=== PATIENT | female | born 1980 | race Caucasian/White ===

== ENCOUNTER 2017-12-17 00:21 | Emergency (ER) | payer OTHER, SELFPAY ==
--- NOTE | 2017-12-17 00:29 | ED_ITS ---
HPI - General Adult General Chief complaint: Recheck/Abnormal Lab/Rx Stated complaint: MED REFILL Time Seen by Provider: 12/17/17 00:28 Source: patient Mode of arrival: ambulatory Limitations: no limitations History of Present Illness HPI narrative: Patient is here for a refill of her Effexor 150 mg XR tablets. Related Data Home Medications Medication Instructions Recorded Confirmed venlafaxine 150 mg PO QDAY #0 05/26/16 Previous Rx's Medication Instructions Recorded azithromycin [Zithromax Z-Choco] 0 tab PO QDAY #6 tab 05/27/16 venlafaxine [Effexor XR] 150 mg PO DAILY #30 cap 12/17/17 Allergies Allergy/AdvReac Type Severity Reaction Status Date / Time amoxicillin [AMOXICILLIN] Allergy Unknown Unverified 05/24/17 12:43 Sulfa (Sulfonamide Allergy Unknown Unverified 05/24/17 12:43 Antibiotics) [SULFA (SULFONAMIDE ANTIBIOTICS)] Review of Systems Review of Systems Patient has no complaints except that she needs a refill of her medication. FOR[facility]LY [facility] Medical History Healthy adult (Acute) Surgical History No pertinent past surgical history (Acute) Exam Initial Vital Signs Initial Vital Signs: Vital Signs Temperature 97.9 F 12/17/17 00:33 Pulse Rate 86 12/17/17 00:33 Respiratory Rate 16 12/17/17 00:33 Blood Pressure 144/93 H 12/17/17 00:33 Pulse Oximetry 100 12/17/17 00:33 HENMT Head: normal to inspection, normocephalic and atraumatic Resp Effort & Inspection: normal respiratory effort Skin Lesions: no lesions Rashes: no rashes Neuro General: alert, awake and oriented x3 Psych Appearance: grossly normal and well kempt Course Vital Signs - 8 hr 12/17/17 00:33 Temperature 97.9 F Pulse Rate 86 Respiratory Rate 16 Blood Pressure 144/93 H Pulse Oximetry 100 Medical Decision Making MDM Narrative Medical decision making narrative: Patient did have her prescription bottle with her. Refill of 30x 150 mg Effexor XR tablets was written for her. Discharge Plan Departure Patient Disposition: Home Clinical Impression: Medication refill Activity Restrictions/Additional Instructions: take all of your medications as directed. Contact your primary care doctor for a follow-up. Prescriptions: New venlafaxine [Effexor XR] 150 mg capsule,extended release 24hr 150 mg PO DAILY Qty: 30 RF: 0 No Action venlafaxine 150 MG capsule,extended release 24hr 150 mg PO QDAY Qty: 0 RF: 0 azithromycin [Zithromax Z-Choco] 250 MG tablet PO QDAY Qty: 6 RF: 0
[2017-12-17 00:33] VITALS: BP 144/93; PULSE 86; RESP 16; TEMP 36.6; O2SAT 100; BMI 29.2
== END 2017-12-17 00:36 | disposition home or self-care (01) ==
PROVIDERS: Emergency Provider Emergency Medicine
DX: Z76.0 Encounter for issue of repeat prescription (principal)
CPT/HCPCS: 99281; 99282

== ENCOUNTER 2019-09-16 19:46 | Emergency (ER) | payer OTHER, SELFPAY ==
[2019-09-16 20:20] VITALS: BP 129/79; PULSE 85; RESP 15; TEMP 37.1; O2SAT 98; BMI 32.8
== END 2019-09-16 21:56 | disposition left against medical advice (07) ==
PROVIDERS: Emergency Provider Emergency Medicine
DX: R51 Headache (principal)
CPT/HCPCS: 99281

== ENCOUNTER 2020-06-15 09:43 | Emergency (ER) | payer OTHER, SELFPAY ==
[2020-06-15 09:45] VITALS: BP 186/98; PULSE 100; RESP 14; TEMP 37.2; O2SAT 99
--- NOTE | 2020-06-15 09:46 | DI.RAD.S_ITS ---
PROCEDURE: XR CHEST 1V INDICATIONS: chest pain TECHNIQUE: One view of the chest was acquired. COMPARISON: None. FINDINGS: Surgical changes and devices: None. Lungs and pleura: Lungs are clear. No pleural effusions or pneumothorax. Mediastinum: Mediastinal contours appear normal. Heart size is normal. Bones and chest wall: No suspicious bony lesions. Overlying soft tissues appear unremarkable. IMPRESSION: Normal for age, source of current chest pain symptoms is not seen. Dictated by: Singh Souza M.D. on 06/15/2020 at 11:10 Approved by: Singh Souza M.D. on 06/15/2020 at 11:10
[2020-06-15 10:16] LABS: Add Manual Diff / Slide Review NO; Basophils Absolute Auto 0 /uL (0-100); Basophils Percent Auto 0.8 % (0-2); Eosinophils Absolute Auto 100 /uL (0-450); Eosinophils Percent Auto 1.2 % (2-4); Hematocrit 30.8 % (36-46); Hemoglobin 9.6 g/dL (12.0-16.0); Lymphocytes Absolute Auto 1300 /uL (1100-4500); Lymphocytes Percent Auto 26.2 % (25-40); Mean Corpuscular HGB Conc 31.1 % (30-36); Mean Corpuscular Hemoglobin 23.1 PG (26-34); Mean Corpuscular Volume 74.2 fL (80-100); Monocytes Absolute Auto 500 /uL (0-900); Monocytes Percent Auto 9.8 % (3-14); Neutrophils Absolute Auto 3000 /uL (1500-7000); Platelet Count 333 X10^3/uL (150-400); Red Blood Cell Count 4.16 X10^6/uL (4.0-5.2); Red Cell Distribution Width 17.1 % (11.6-14.8); White Blood Cell Count 4.9 X10^3/uL (4.5-11.0)
[2020-06-15 10:22] VITALS: PULSE 91; RESP 18; O2SAT 100
--- NOTE | 2020-06-15 10:23 | PC.NURSE ---
pt states she had chest pain yesterday as well. it started again at 0745. pt states is a chest pressure and she also has a slight headache.
--- NOTE | 2020-06-15 10:24 | ED.CHESTPAIN ---
HPI - Chest Pain General Chief Complaint: Chest Pain Stated Complaint: High BP/Chest pressure Time Seen by Provider: 06/15/20 10:07 Source: patient Mode of arrival: Ambulatory Limitations: no limitations History of Present Illness HPI narrative: Patient is a 40-year-old female here for evaluation of high blood pressure and chest pain. She states that her symptoms started yesterday continue throughout the day. Described it as a pressure in her chest. Was not made better worse with palpation or movement. She took an Ativan last night for some anxiety and went to sleep with the discomfort. Woke up this morning feeling somewhat better and then the discomfort returned. She states that she was told that she had a ?silent heart attack ?in the past. She is not on blood pressure medications. Related Data Home Medications Medication Instructions Recorded Confirmed venlafaxine 150 mg PO QDAY #0 05/26/16 Previous Rx's Medication Instructions Recorded venlafaxine [Effexor XR] 150 mg PO DAILY #30 cap 12/17/17 Allergies Allergy/AdvReac Type Severity Reaction Status Date / Time amoxicillin [AMOXICILLIN] Allergy Unknown Verified 06/15/20 10:42 Sulfa (Sulfonamide Allergy Unknown Verified 06/15/20 10:42 Antibiotics) [SULFA (SULFONAMIDE ANTIBIOTICS)] Review of Systems Constitutional Constitutional: Denies fatigue, Denies fever(s) and Denies headache(s) Eyes Eyes: Denies blurry vision and Denies change in vision ENT Ears, Nose, Mouth, and Throat: Denies headache(s) and Denies sore throat Cardiovascular Cardiovascular: Reports chest pain, Denies rapid heart rate, Denies irregular heart rhythm and Denies dyspnea Respiratory Respiratory: Denies cough and Denies dyspnea Gastrointestinal Gastrointestinal: Denies abdominal pain, Denies nausea and Denies vomiting Genitourinary Genitourinary: Denies dysuria Genitourinary: Denies dysuria Musculoskeletal Musculoskeletal: Denies myalgias Integumentary/Breasts Skin/Breast: Denies lesions and Denies rash Neurologic Neurologic: Denies behavioral changes, Denies confusion and Denies headache(s) Psychiatric Psychiatric: Denies behavioral changes and Denies confusion Endocrine Endocrine: Denies fatigue Hematologic/Lymphatic On Anticoagulants: No Allergic/Immunologic Allergic/Immunologic: Denies urticaria Patient History Medical History Healthy adult Surgical History (Updated 12/17/17 @ 00:37 by Luis Eduardo Yoder DO) No pertinent past surgical history Social History Smoking Status: Current every day smoker Smoking Status: Current every day smoker alcohol intake frequency: 0-2 drinks per day Substance Use Type: does not use Exam Initial Vital Signs Initial Vital Signs: Vital Signs Temperature 98.9 F 06/15/20 09:45 Pulse Rate 100 H 06/15/20 09:45 Respiratory Rate 14 06/15/20 09:45 Blood Pressure 186/98 H 06/15/20 09:45 Pulse Oximetry 99 06/15/20 09:45 Const General: cooperative, comfortable and well developed Limitations: mental status not altered HENMT Head: normal to inspection and normocephalic Eyes General: appearance normal, both eyes and all related structures Chest Chest: No tenderness Resp Effort & Inspection: normal respiratory effort Auscultation: clear to auscultation bilaterally Cardio Rate: regular rate Rhythm: regular rhythm Pulses: radial pulses present GI Inspection: non-distended Palpation: soft Skin Lesions: no lesions Rashes: no rashes Neuro General: patient alert, patient awake and patient oriented x3 Cognition: normal cognition Speech: speech normal Extrem General: normal to inspection and capillary refill normal Psych Appearance: grossly normal and well kempt Scores GCS [place] coma scale eye opening: Spontaneous [place] coma scale verbal response: Orientated [place] coma scale motor response: Obey commands [place] coma scale total score: 15 HEART Score Heart Score history: Slightly Suspicious Heart Score EKG: Normal Heart Score Age: < 45 years old Heart Score risk factors: No known risk factors Heart Score troponin: < or = to normal limit Heart Score Total: 0 Course Orders Ordered: ED Orders 06/15/20 09:46 XR chest 1V Stat EKG-12 Lead Stat 06/15/20 10:05 Complete Blood Count AUTO DIFF Stat Comprehensive Metabolic Panel Stat Lipase Stat Partial Thromboplastin Time Stat Prothrombin Time INR Stat Troponin & CK Cardiac Panel Stat 06/15/20 10:08 TSH w/ Reflex to FT4 Stat Vital Signs Vital signs: Vital Signs - 8 hr 06/15/20 09:45 Temperature 98.9 F Pulse Rate 100 H Respiratory Rate 14 Blood Pressure 186/98 H Pulse Oximetry 99 MDM - Chest Pain Lab Data Attestation: I reviewed the patient's lab results. Result diagrams: 06/15/20 10:05 06/15/20 10:05 Labs: Lab Results 06/15/20 06/15/20 06/15/20 Range/Units 10:05 10:05 10:05 WBC 4.9 (4.5-11.0) X10^3/uL RBC 4.16 (4.0-5.2) X10^6/uL Hgb 9.6 L (12.0-16.0) g/dL Hct 30.8 L (36-46) % MCV 74.2 L (80-100) fL MCH 23.1 L (26-34) PG MCHC 31.1 (30-36) % RDW 17.1 H (11.6-14.8) % Plt Count 333 (150-400) X10^3/uL Neut % (Auto) 62.0 (50-75) % Lymph % (Auto) 26.2 (25-40) % [place] % (Auto) 9.8 (3-14) % Eos % (Auto) 1.2 L (2-4) % Baso % (Auto) 0.8 (0-2) % Neut # (Auto) 3000 (6825-4330) /uL Lymph # (Auto) 1300 (5886-7515) /uL [place] # (Auto) 500 (0-900) /uL Eos # (Auto) 100 (0-450) /uL Baso # (Auto) 0 (0-100) /uL PT 11.1 (10.1-12.7) SECONDS INR 1.0 (0.9-1.3) APTT 30 (26.4-36.2) SECONDS Sodium 138 (137-145) mmol/L Potassium 3.6 (3.4-5.1) mmol/L Chloride 105 (98-107) mmol/L Carbon Dioxide 27 (22-32) mmol/L BUN 7 (7-17) mg/dL Creatinine 0.53 (0.52-1.04) mg/dL Estimated GFR > 60.0 (>60) mL/min BUN/Creatinine Ratio 13.2 (6-22) Glucose 99 (70-100) mg/dL Calcium 9.1 (8.4-10.2) mg/dL Total Bilirubin 0.3 (0.2-1.3) mg/dL AST 28 (14-36) IU/L ALT 14 (<35) IU/L Alkaline Phosphatase 79 (38-126) U/L Total Creatine Kinase 83 (30-135) U/L CK-MB (CK-2) TNP CK-MB (CK-2) Rel Index TNP Troponin I < 0.012 (0.01-0.034) ng/mL Total Protein 7.5 (6.3-8.2) g/dL Albumin 4.2 (3.5-5.0) g/dL Globulin 3.3 (1.7-4.1) g/dL Albumin/Globulin Ratio 1.3 (1.0-2.8) Lipase 80 (23-300) U/L TSH (0.47-4.68) uIU/mL 06/15/ Range/Units 10:08 WBC (4.5-11.0) X10^3/uL RBC (4.0-5.2) X10^6/uL Hgb (12.0-16.0) g/dL Hct (36-46) % MCV (80-100) fL MCH (26-34) PG MCHC (30-36) % RDW (11.6-14.8) % Plt Count (150-400) X10^3/uL Neut % (Auto) (50-75) % Lymph % (Auto) (25-40) % [place] % (Auto) (3-14) % Eos % (Auto) (2-4) % Baso % (Auto) (0-2) % Neut # (Auto) (1172-1966) /uL Lymph # (Auto) (4796-2536) /uL [place] # (Auto) (0-900) /uL Eos # (Auto) (0-450) /uL Baso # (Auto) (0-100) /uL PT (10.1-12.7) SECONDS INR (0.9-1.3) APTT (26.4-36.2) SECONDS Sodium (137-145) mmol/L Potassium (3.4-5.1) mmol/L Chloride (98-107) mmol/L Carbon Dioxide (22-32) mmol/L BUN (7-17) mg/dL Creatinine (0.52-1.04) mg/dL Estimated GFR (>60) mL/min BUN/Creatinine Ratio (6-22) Glucose (70-100) mg/dL Calcium (8.4-10.2) mg/dL Total Bilirubin (0.2-1.3) mg/dL AST (14-36) IU/L ALT (<35) IU/L Alkaline Phosphatase (38-126) U/L Total Creatine Kinase (30-135) U/L CK-MB (CK-2) CK-MB (CK-2) Rel Index Troponin I (0.01-0.034) ng/mL Total Protein (6.3-8.2) g/dL Albumin (3.5-5.0) g/dL Globulin (1.7-4.1) g/dL Albumin/Globulin Ratio (1.0-2.8) Lipase (23-300) U/L TSH 4.17 (0.47-4.68) uIU/mL Imaging Data Chest x-ray: Radiologist's Impression: [address] [id number] ReportSigned Patient: Monserrat Duffy PMR#: [id number]: 1980Acct:[id number]/Sex: 40 / FDate of Service: 06/15/20Loc: EDAccession Number: [id number] Procedure: XR chest 1V Ordering Provider: Luis Eduardo Yoder D.O. PROCEDURE: XR CHEST 1V INDICATIONS: chest pain TECHNIQUE: One view of the chest was acquired. COMPARISON: None. FINDINGS: Surgical changes and devices: None. Lungs and pleura: Lungs are clear. No pleural effusions or pneumothorax. Mediastinum: Mediastinal contours appear normal. Heart size is normal. Bones and chest wall: No suspicious bony lesions. Overlying soft tissues appear unremarkable. IMPRESSION: Normal for age, source of current chest pain symptoms is not seen. Dictated by: Singh Souza M.D. on 06/15/2020 at 11:10 Approved by: Singh Souza M.D. on 06/15/2020 at 11:10 ECG Data Attestation: I personally reviewed and interpreted this ECG as follows: Prior ECG tracings: not available for review Interpretation: Sinus tachycardia Ventricular rate of 101 Normal axis Normal QRS Normal QTC No ST T wave changes MDM Narrative Medical decision making narrative: Patient has a low risk heart score. EKG and chest x-ray are all unremarkable. Troponin is negative. Have low suspicion for ACS. I do have a higher suspicion that this is anxiety related. She is afebrile. No indication for antibiotics. Will discharge home and have her contact her primary provider for follow-up. She was given return precautions. She expressed understanding and agreement. Discharge Plan Departure Patient Disposition: Home Clinical Impression: Chest pain Instructions: DI for Atypical Chest Pain Activity Restrictions/Additional Instructions: Recommend that you take all of your medications as directed. Contact your primary provider for a follow-up. Return to the emergency department for any new or worsening symptoms Prescriptions: No Action venlafaxine 150 MG capsule,extended release 24hr 150 mg PO QDAY Qty: 0 RF: 0 venlafaxine [Effexor XR] 150 mg capsule,extended release 24hr 150 mg PO DAILY Qty: 30 RF: 0 Referrals: Yolanda Reese MD [Primary Care Provider] -
[2020-06-15 10:30] VITALS: BP 131/75; PULSE 88; RESP 20; O2SAT 98
[2020-06-15 10:35] LABS: Alanine Aminotransferase 14 IU/L (<35); Albumin 4.2 g/dL (3.5-5.0); Albumin Globulin Ratio 1.3 (1.0-2.8); Alkaline Phosphatase 79 U/L (38-126); Aspartate Aminotransferase 28 IU/L (14-36); BUN Creatinine Ratio 13.2 (6-22); Bilirubin Total 0.3 mg/dL (0.2-1.3); Blood Urea Nitrogen 7 mg/dL (7-17); Calcium 9.1 mg/dL (8.4-10.2); Carbon Dioxide 27 mmol/L (22-32); Chloride 105 mmol/L (98-107); Creatine Kinase 83 U/L (30-135); Estimated Glomerular Filt Rate > 60.0 mL/min (>60); Globulin 3.3 g/dL (1.7-4.1); Glucose 99 mg/dL (70-100); HEMOLYSIS < 15 (0-50); Lipase 80 U/L (23-300); Potassium 3.6 mmol/L (3.4-5.1); Sodium 138 mmol/L (137-145); Total Protein 7.5 g/dL (6.3-8.2)
[2020-06-15 10:40] LABS: Prothrombin Time 11.1 SECONDS (10.1-12.7)
[2020-06-15 10:43] LABS: PTT Partial Thromboplastin Tim 30 SECONDS (26.4-36.2)
[2020-06-15 10:46] LABS: Troponin I < 0.012 ng/mL (0.01-0.034)
[2020-06-15 11:00] VITALS: BP 126/75; PULSE 79; RESP 19; O2SAT 100
[2020-06-15 11:30] VITALS: BP 138/77; PULSE 83; RESP 21; O2SAT 100
[2020-06-15 11:45] LABS: TSH w/ Reflex to FT4 4.17 uIU/mL (0.47-4.68)
[2020-06-15 12:00] VITALS: BP 138/77; PULSE 85; RESP 28; O2SAT 91
== END 2020-06-15 12:15 | disposition home or self-care (01) ==
PROVIDERS: Emergency Provider Emergency Medicine; PCP Student in an Organized Health Care Education/Training Program
DX: R07.9 Chest pain, unspecified (principal); R00.0 Tachycardia, unspecified
CPT/HCPCS: 36415; 71045; 80053; 82550; 83690; 84443; 84484; 85025; 85610; 85730; 93005; 99284

== ENCOUNTER 2021-03-14 19:58 | Emergency (ER) | payer OTHER, SELFPAY ==
[2021-03-14 20:10] VITALS: BP 162/99; PULSE 85; RESP 16; TEMP 36.3; O2SAT 98; BMI 35.5
--- NOTE | 2021-03-14 20:38 | DI.US.S_ITS ---
PROCEDURE: US ABDOMEN LIMITED INDICATIONS: RUQ abd pain TECHNIQUE: Real-time scanning was performed of the abdominal and retroperitoneal organs, with image documentation. COMPARISON: None. FINDINGS: Liver: Liver is enlarged measuring 18.8 cm. No focal masses. Gallbladder: No stones. Wall thickness is within normal limits measuring 2.0 cm per Biliary ducts: Intrahepatic bile ducts are non-dilated. Extrahepatic bile duct caliber measures 3.3 mm. Normal is 6-7 mm or less in diameter, or 10 mm or less post-cholecystectomy. Pancreas: Visualized portions of the pancreas are sonographically normal. IMPRESSION: 1. Mild hepatomegaly without focal mass. Dictated by: Jennifer Bolden M.D. on 03/14/2021 at 21:22 Approved by: Jennifer Bolden M.D. on 03/14/2021 at 21:23
[2021-03-14] MEDS: KETOROLAC 30 MG/ML VIAL 15 MG IV (20:43)
[2021-03-14 20:46] LABS: Add Manual Diff / Slide Review NO; Basophils Absolute Auto 0 /uL (0-100); Basophils Percent Auto 0.5 % (0-2); Eosinophils Absolute Auto 200 /uL (0-450); Eosinophils Percent Auto 2.2 % (2-4); Lymphocytes Absolute Auto 1900 /uL (1100-4500); Lymphocytes Percent Auto 22.8 % (25-40); Mean Corpuscular HGB Conc 32.4 % (30-36); Mean Corpuscular Hemoglobin 26.3 PG (26-34); Mean Corpuscular Volume 81.2 fL (80-100); Monocytes Absolute Auto 600 /uL (0-900); Monocytes Percent Auto 7.9 % (3-14); Neutrophils Absolute Auto 5400 /uL (1500-7000); Neutrophils Percent Auto 66.6 % (50-75); Platelet Count 237 X10^3/uL (150-400); Red Blood Cell Count 4.19 X10^6/uL (4.0-5.2); Red Cell Distribution Width 19.5 % (11.6-14.8); White Blood Cell Count 8.2 X10^3/uL (4.5-11.0)
[2021-03-14 20:58] LABS: Alanine Aminotransferase 11 IU/L (<35); Albumin 4.4 g/dL (3.5-5.0); Albumin Globulin Ratio 1.4 (1.0-2.8); Alkaline Phosphatase 80 U/L (38-126); Aspartate Aminotransferase 20 IU/L (14-36); Bilirubin Total 0.3 mg/dL (0.2-1.3); Blood Urea Nitrogen 11 mg/dL (7-17); Carbon Dioxide 27 mmol/L (22-32); Chloride 106 mmol/L (98-107); Estimated Glomerular Filt Rate > 60.0 mL/min (>60); Globulin 3.2 g/dL (1.7-4.1); Glucose 108 mg/dL (70-100); HEMOLYSIS < 15 (0-50); Lipase 109 U/L (23-300); Potassium 3.9 mmol/L (3.4-5.1); Sodium 139 mmol/L (137-145); Total Protein 7.6 g/dL (6.3-8.2)
--- NOTE | 2021-03-14 22:57 | PC.NURSE ---
pt states she has mid upper abd pain that radiates into the back that is constant in nature and may increase with eating, at present pt states her pain is mild after the tramadol she took earlier
--- NOTE | 2021-03-14 23:21 | ED.ABDPAIN ---
HPI - Abdominal Pain General Chief Complaint: Abdominal Pain Stated Complaint: abd pain, back is hurting Time Seen by Provider: 03/14/21 23:18 Source: patient Mode of arrival: Ambulatory History of Present Illness HPI narrative: Patient is a 40-year-old female with history of depression hypothyroid presenting today with 2 days of abdominal pain. She says it feels like a belt around her epigastric area is. She initially thought she had food poisoning but she never got nauseous or had vomiting or diarrhea. She has no fever or chills. She says it is constantly there but does intensify. She has no chest pain no painful or frequent urination. She denies any prior surgery. She got Toradol earlier and she says it did help much. She says food does not make it worse she is able to is injuring her Related Data Home Medications Medication Instructions Recorded Confirmed escitalopram oxalate 20 mg tablet 20 mg PO DAILY 01/20/21 01/20/21 (Lexapro) levothyroxine 88 mcg tablet 88 mcg PO DAILY 01/20/21 01/20/21 lisdexamfetamine 30 mg chewable 30 mg PO DAILY 01/20/21 01/20/21 tablet (Vyvanse) Allergies Allergy/AdvReac Type Severity Reaction Status Date / Time amoxicillin [AMOXICILLIN] Allergy Unknown Verified 06/15/20 10:42 Sulfa (Sulfonamide Allergy Unknown Verified 06/15/20 10:42 Antibiotics) [SULFA (SULFONAMIDE ANTIBIOTICS)] Review of Systems Review of Systems Narrative: GENERAL: Denies chills, fatigue, malaise, fever, sweats, travel HEENT: Denies sinus pain, ear pain, sore throat, difficulty swallowing, neck pain RESPIRATORY: Denies dyspnea, cough, wheezing, hemoptysis, sputum. CARDIOVASCULAR: Denies chest pain, palpitations, orthopnea, edema GASTROINTESTINAL: See HPI : Denies dysuria, frequency, incontinence, hematuria, urinary retention, flank pain. MUSCULOSKELETAL: Denies weakness, joint pain, or bony pain SKIN: No rash, no erythema, no pruritus NEUROLOGIC: Denies weakness, dizziness, headache, numbness, change in speech, confusion PSYCHIATRIC: No concerning psychosocial issues. 12 point review of systems is negative except for those stated above and HPI Patient History Medical History Healthy adult Surgical History No pertinent past surgical history Social History Smoking Status: Current every day smoker Smoking Status: Current every day smoker tobacco type: vaping alcohol intake frequency: 3 or more drinks per day Substance Use Type: does not use Exam Initial Vital Signs Initial Vital Signs: Vital Signs Temperature 97.4 F L 03/14/21 20:10 Pulse Rate 85 03/14/21 20:10 Respiratory Rate 16 03/14/21 20:10 Blood Pressure 162/99 H 03/14/21 20:10 Pulse Oximetry 98 03/14/21 20:10 GENERAL: Alert 40-year-old female appears uncomfortable HEENT: Head atraumatic,EOMI, pupils reactive, face symmetric, moist mucous membranes CARDIOVASCULAR: Regular rate and rhythm without murmurs, rubs or gallops. RESPIRATORY: Breath sounds equal bilaterally, no wheezes rales or rhonchi. ABDOMEN: Soft tender epigastric area, mild right upper quadrant pain axis she has some mild lower abdominal pain as well no guarding no rebound : No CVA tenderness EXTREMITIES: Normal range of motion, no clubbing or edema. Neurovascularly intact NEUROLOGICAL: Alert and oriented x4. SKIN: Warm, dry, no laceration, no petechiae, no rashes or lesions. Course Orders Ordered: ED Orders 03/14/21 20:17 EKG-12 Lead Stat 03/14/21 20:36 Complete Blood Count AUTO DIFF Stat Comprehensive Metabolic Panel Stat Lipase Stat 03/14/21 20:38 US abdomen limited Stat 03/14/21 22:50 Urine Microscopic Stat 03/14/21 23:28 CT abdomen pelvis w con Stat Discontinued Medications Acetaminophen (Acetaminophen 325 Mg Tablet) 650 mg PO NOW ONE Stop: 03/14/21 23:38 Last Admin: 03/14/21 23:42 Dose: 650 mg Documented by: DAKOTA Ketorolac Tromethamine (Ketorolac 30 Mg/Ml Vial) 15 mg IV NOW ONE Stop: 03/14/21 20:40 Last Admin: 03/14/21 20:43 Dose: 15 mg Documented by: MATHEW Vital Signs Vital signs: Vital Signs - 8 hr 03/14/21 20:10 Temperature 97.4 F L Pulse Rate 85 Respiratory Rate 16 Blood Pressure 162/99 H Pulse Oximetry 98 MDM - Abdominal Pain Lab Data Result diagrams: 03/14/21 20:36 03/14/21 20:36 Labs: Lab Results 03/14/21 03/14/21 03/14/21 Range/Units 20:36 20:36 22:50 WBC 8.2 (4.5-11.0) X10^3/uL RBC 4.19 (4.0-5.2) X10^6/uL Hgb 11.0 L (12.0-16.0) g/dL Hct 34.0 L (36-46) % MCV 81.2 (80-100) fL MCH 26.3 (26-34) PG MCHC 32.4 (30-36) % RDW 19.5 H (11.6-14.8) % Plt Count 237 (150-400) X10^3/uL Neut % (Auto) 66.6 (50-75) % Lymph % (Auto) 22.8 L (25-40) % [place] % (Auto) 7.9 (3-14) % Eos % (Auto) 2.2 (2-4) % Baso % (Auto) 0.5 (0-2) % Neut # (Auto) 5400 (6810-5251) /uL Lymph # (Auto) 1900 (1221-6846) /uL [place] # (Auto) 600 (0-900) /uL Eos # (Auto) 200 (0-450) /uL Baso # (Auto) 0 (0-100) /uL Sodium 139 (137-145) mmol/L Potassium 3.9 (3.4-5.1) mmol/L Chloride 106 (98-107) mmol/L Carbon Dioxide 27 (22-32) mmol/L BUN 11 (7-17) mg/dL Creatinine 0.58 (0.52-1.04) mg/dL Estimated GFR > 60.0 (>60) mL/min BUN/Creatinine Ratio 19.0 (6-22) Glucose 108 H (70-100) mg/dL Calcium 9.0 (8.4-10.2) mg/dL Total Bilirubin 0.3 (0.2-1.3) mg/dL AST 20 (14-36) IU/L ALT 11 (<35) IU/L Alkaline Phosphatase 80 (38-126) U/L Total Protein 7.6 (6.3-8.2) g/dL Albumin 4.4 (3.5-5.0) g/dL Globulin 3.2 (1.7-4.1) g/dL Albumin/Globulin Ratio 1.4 (1.0-2.8) Lipase 109 (23-300) U/L Urine RBC 0-1/hpf (0-5/HPF) Urine WBC 0-1/hpf (0-5/HPF) Ur Squamous Epith Cells 1-5 /hpf (0-5/HPF) Urine Bacteria Few (2-10) H (None) Urine Mucus 2+ H (Negative) Ur Culture Indicated? Cult not indicated Point of care testing: Point of Care Testing Test Results Negative Urine Dip Bedside Urine Glucose Negative Bedside Urine Bilirubin - Negative Bedside Urine Ketone - Negative Urine Specific [place] 1.030 Bedside Urine Occult Blood - Negative Bedside Urine pH 6.0 Bedside Urine Protein + 30 Bedside Urine Urobilinogen - Negative Bedside Urine Nitrite - Negative Bedside Urine Leukocytes - Negative Esterase Imaging Data US - abdomen: Radiologist's Impression: PROCEDURE:? US ABDOMEN LIMITED ? INDICATIONS:? RUQ abd pain ? TECHNIQUE:? Real-time scanning was performed of the abdominal and retroperitoneal organs, with image documentation.? ? COMPARISON:? None. ? FINDINGS:? ? Liver:? Liver is enlarged measuring 18.8 cm.? No focal masses.? ? Gallbladder:? No stones.? Wall thickness is within normal limits measuring 2.0 cm per ? Biliary ducts:? Intrahepatic bile ducts are non-dilated.? Extrahepatic bile duct caliber measures 3.3 mm.? Normal is 6-7 mm or less in diameter, or 10 mm or less post-cholecystectomy.? ? Pancreas:? Visualized portions of the pancreas are sonographically normal.? ? IMPRESSION:? ? 1. Mild hepatomegaly without focal mass. ? Dictated by: Jennifer Bolden M.D. on 03/14/2021 at 21:22 ?? CT scan - abdomen/pelvis: Radiologist's Impression: PROCEDURE:? CT ABDOMEN PELVIS W CON ? INDICATIONS:? abdominal pain ? TECHNIQUE:? After the administration of oral and IV contrast, axial sections were acquired from the lung bases to the pubic symphysis.? Coronal and sagittal reformats were performed.? For radiation dose reduction, the following was used:? automated exposure control, adjustment of mA and/or kV according to patient size. ? COMPARISON:? [facility], , ABDOMEN LIMITED, 03/14/2021, 21:03. ? FINDINGS:? Image quality:? Excellent.? ? Lung bases:? Unremarkable.? ? Heart:? No significant findings. ? ? ABDOMEN: Liver:? The liver is enlarged measuring 21.2 cm in craniocaudal dimension.? It is visualized in its entirety.? Steatosis is present. Gallbladder:? Unremarkable.? ? Biliary ducts:? Unremarkable.? ? Pancreas:? Unremarkable.? ? Spleen:? Unremarkable.? ? Adrenal Glands:? Unremarkable.? ? Kidneys and Ureters:? Unremarkable.? ? ? Stomach and Bowel:? Stomach, small bowel loops, and colon are unremarkable.? Moderate colonic stool is present. Peritoneum:? Trace dependent pelvic fluid.? No free air.? ? Ventral Wall: ? No hernia.? Abdominal Nodes:? No retroperitoneal or mesenteric adenopathy by size criteria.? Vessels:? Aorta and inferior vena cava are normal in size.? ? PELVIS: Pelvic Organs:? Rim enhancing low-attenuation focus is present within the left adnexa measuring 2.4 cm. Bladder:? Unremarkable.? ? Pelvic Nodes: No enlarged lymph nodes.? Miscellaneous: No inguinal hernias are seen. ? ? ? Bones:? Unremarkable.? IMPRESSION:? ? Moderate colonic stool without obstruction. ? Rim enhancing low-attenuation focus within the left adnexa suggestive of involuting hemorrhagic cyst. ? Hepatomegaly with steatosis. ? ? Dictated by: Jennifer Bolden M.D. on 03/15/2021 at 0:20 ? ? ECG Data Interpretation: Normal sinus rhythm rate 75 PA interval 156 QRS [address] changes ischemic changes MDM Narrative Medical decision making narrative: Patient has a band of pain across her epigastric area. Ultrasound and CT are centrally negative. CT does show some mild constipation however she says she is having bowel movements without any issue. Pain is controlled with Toradol and Tylenol. A this time recommend further outpatient testing. Discharge Plan Departure Patient Disposition: Home Clinical Impression: Abdominal pain Instructions: DI for Abdominal Pain-Adult Activity Restrictions/Additional Instructions: *You have been diagnosed with abdominal pain *What to do: At this time blood work CT scan and ultrasound are overall reassuring. The CT did show that you have some mild constipation. *Continue to take medications as directed Ibuprofen 600 mg every 6 hours if needed for [id number] Tylenol 1000 mg every 6 hours if needed for [id number] pain *Follow up with your primary care provider in 2-3 days or call [phone] *Return to ER if you should have increasing pain persistent vomiting or any new, worsening or concerning symptoms Prescriptions: No Action levothyroxine 88 mcg Tablet 88 mcg PO DAILY 0RF escitalopram oxalate [Lexapro] 20 mg Tablet 20 mg PO DAILY 0RF Vyvanse 30 mg Tablet,Chewable 30 mg PO DAILY 0RF Referrals: Yolanda Reese MD [Primary Care Provider] -
[2021-03-14 23:26] LABS: Bacteria Urine Few (2-10); Mucus Urine 2+ (Negative); Squamous Epithelial Cell Urine 1-5 /HPF (0-5/HPF); WBC Urine 0-1/HPF (0-5/HPF)
[2021-03-14 23:27] LABS: Culture Indicated Urine Cult Not Indicated
--- NOTE | 2021-03-14 23:28 | DI.CT.S_ITS ---
PROCEDURE: CT ABDOMEN PELVIS W CON INDICATIONS: abdominal pain TECHNIQUE: After the administration of oral and IV contrast, axial sections were acquired from the lung bases to the pubic symphysis. Coronal and sagittal reformats were performed. For radiation dose reduction, the following was used: automated exposure control, adjustment of mA and/or kV according to patient size. COMPARISON: [facility], , ABDOMEN LIMITED, 03/14/2021, 21:03. FINDINGS: Image quality: Excellent. Lung bases: Unremarkable. Heart: No significant findings. ABDOMEN: Liver: The liver is enlarged measuring 21.2 cm in craniocaudal dimension. It is visualized in its entirety. Steatosis is present. Gallbladder: Unremarkable. Biliary ducts: Unremarkable. Pancreas: Unremarkable. Spleen: Unremarkable. Adrenal Glands: Unremarkable. Kidneys and Ureters: Unremarkable. Stomach and Bowel: Stomach, small bowel loops, and colon are unremarkable. Moderate colonic stool is present. Peritoneum: Trace dependent pelvic fluid. No free air. Ventral Wall: No hernia. Abdominal Nodes: No retroperitoneal or mesenteric adenopathy by size criteria. Vessels: Aorta and inferior vena cava are normal in size. PELVIS: Pelvic Organs: Rim enhancing low-attenuation focus is present within the left adnexa measuring 2.4 cm. Bladder: Unremarkable. Pelvic Nodes: No enlarged lymph nodes. Miscellaneous: No inguinal hernias are seen. Bones: Unremarkable. IMPRESSION: Moderate colonic stool without obstruction. Rim enhancing low-attenuation focus within the left adnexa suggestive of involuting hemorrhagic cyst. Hepatomegaly with steatosis. Dictated by: Jennifer Bolden M.D. on 03/15/2021 at 0:20 Approved by: Jennifer Bolden M.D. on 03/15/2021 at 0:22
[2021-03-14 23:35] LABS: RBC Urine 0-1/HPF (0-5/HPF)
[2021-03-14] MEDS: ACETAMINOPHEN 325 MG TABLET 650 MG PO (23:42)
[2021-03-15 00:50] VITALS: BP 124/78; PULSE 75; RESP 18; O2SAT 99
== END 2021-03-15 00:35 | disposition home or self-care (01) ==
PROVIDERS: Emergency Provider Emergency Medicine; PCP Student in an Organized Health Care Education/Training Program
DX: R10.13 Epigastric pain (principal); F17.290 Nicotine dependence, other tobacco product, uncomplicated
CPT/HCPCS: 36415; 74177; 76705; 80053; 81003; 81015; 81025; 83690; 85025; 93005; 96374; 99284; J1885; Q9967

== ENCOUNTER 2023-02-01 15:52 | Emergency (ER) | payer OTHER, SELFPAY ==
[2023-02-01 16:03] VITALS: BP 162/106; PULSE 108; RESP 18; TEMP 36.9; O2SAT 99; BMI 34.5
--- NOTE | 2023-02-01 16:30 | ED_ITS ---
HPI - Female Genitourinary <Lyndsay Powell PA-C - Last Filed: 02/01/23 19:33> General Chief complaint: Urogenital-Female Stated complaint: endometriosis pain and bleeding Time Seen by Provider: 02/01/23 16:27 Source: patient Mode of arrival: Ambulatory History of Present Illness HPI Narrative: 42-year-old woman with history of chronic anemia, hypothyroid, presents with concern for pelvic pain and persistent spotting. Patient states that she is been dealing with very heavy periods for the past 5 months worse in the last 3 months, has also been having extremely painful periods and intermittent persistent pelvic pains as well as light spotting in between her periods. She has already had a referral placed gynecology/Women's Health and saw her provider last week and got an ultrasound done. She states that after the ultrasound they told her that she has polyps and likely endometriosis and advised her to keep her follow-up with Women's Health. However last night her pain became more intense than usual and persistent she describes it as an aching pain although sometimes she has sharp pains. It is in her low belly/pelvis and she says it feels the same as the pain she is been dealing with for the past 3-5 months simply more intense and a little bit more persistent and unrelieved with [id number] medicines. She came in today for help with pain relief. She states she did not get any sleep last night due to the pain. She denies any chance of , is not on control however her partner has had a vasectomy and she is monogamous. She denies any other complaints or concerns including heavy bleeding, dizziness, lightheadedness, vaginal discharge, fevers, chills syncope generalized abdominal pain change in bowel or bladder habits or any other symptoms. Related Data Home Medications Medication Instructions Recorded Confirmed escitalopram oxalate 20 mg tablet 20 mg PO DAILY 01/20/21 08/17/21 (Lexapro) levothyroxine 88 mcg tablet 88 mcg PO DAILY 01/20/21 08/17/21 lisdexamfetamine 30 mg chewable 30 mg PO DAILY 01/20/21 08/17/21 tablet (Vyvanse) Previous Rx's Medication Instructions Recorded ketorolac 10 mg tablet 10 mg PO TID PRN pain 5 days #14 02/01/23 tabs norethindrone acetate 1.5 1 tab PO DAILY endometriosis pain 02/01/23 mg-ethinyl estradiol 30 mcg tablet #63 tabs (Microgestin) Allergies Allergy/AdvReac Type Severity Reaction Status Date / Time amoxicillin [AMOXICILLIN] Allergy Unknown Verified 06/15/20 10:42 Sulfa (Sulfonamide Allergy Unknown Verified 06/15/20 10:42 Antibiotics) [SULFA (SULFONAMIDE ANTIBIOTICS)] Review of Systems <Lyndsay Powell PA-C - Last Filed: 02/01/23 19:33> Review of Systems Narrative: See HPI Patient History <Lyndsay Powell PA-C - Last Filed: 02/01/23 19:33> Medical History Healthy adult Surgical History No pertinent past surgical history tobacco type: vaping alcohol intake frequency: 3 or more drinks per day Substance Use Type: does not use Exam <Lyndsay Powell PA-C - Last Filed: 02/01/23 19:33> Narrative Exam Narrative: GENERAL: 42 year old patient appears stated age. Well-developed patient, in mild distress, patient is very uncomfortable appearing, difficulty sitting still, tearful, in pain. HEAD: Atraumatic. Normocephalic. EYES: Pupils equal round and reactive. Extraocular motions intact. No scleral icterus. No injection or drainage. ENT: Nose without bleeding, purulent drainage. Throat without erythema, tonsillar hypertrophy or exudate. Airway patent. NECK: Trachea midline. Non tender CARDIOVASCULAR: Regular rate and rhythm without murmurs, gallops, or rubs. RESPIRATORY: Clear to auscultation. Breath sounds equal bilaterally. No wheezes, rales, or rhonchi. GASTROINTESTINAL: Abdomen soft, lower quadrants are bilaterally mildly tender, nondistended, mild suprapubic tenderness, no CVA tenderness. EXTREMITIES: No edema or joint tenderness. BACK: Nontender without deformity or crepitance. No flank tenderness. NEURO: AOx3. SKIN: No rash or erythema of visible areas Initial Vital Signs Initial Vital Signs: Vital Signs Temperature 98.4 F 02/01/23 16:03 Pulse Rate 108 H 02/01/23 16:03 Respiratory Rate 18 12/20/23 16:03 Blood Pressure 162/106 H 02/01/23 16:03 Pulse Oximetry 99 02/01/23 16:03 Oxygen Delivery Method Room Air 02/01/23 16:03 <Mirta Fournier MD - Last Filed: 02/01/23 20:20> Initial Vital Signs Initial Vital Signs: Vital Signs Temperature 98.4 F 02/01/23 16:03 Pulse Rate 108 H 02/01/23 16:03 Respiratory Rate 18 02/01/23 16:03 Blood Pressure 162/106 H 02/01/23 16:03 Pulse Oximetry 99 02/01/23 16:03 Oxygen Delivery Method Room Air 02/01/23 16:03 Course <Lyndsay Powell PA-C - Last Filed: 02/01/23 19:33> Course Course Narrative: Rechecked the patient and while the Toradol did help a fair amount earlier it has not completely improved her pain and she states that her pain is still quite intense. She reiterated that this does feel similar to the pain she is been dealing with when she has her periods it is a constant pain, simply more intense and lasting longer than is typical for her. She is hoping for more to help with her pain and do order 0.5 Dilaudid. We again discussed possibly obtaining ultrasound for further evaluation but we will hold off on this due to her recent ultrasound and the fact that this pain is consistent with pain she is had previously and not a new type of pain. 1800 Did discuss this patient with attending physician Dr. Fournier and she agrees we do not need to do repeat imaging today does encourage conversation regarding possibly starting control to help with her symptoms and advising patient to take NSAIDs for pain. 1829 Orders Ordered: ED Orders 02/01/23 16:56 CBC Auto Diff [Complete Blood Count AUTO DIFF] Stat CMP [Comprehensive Metabolic Panel] Stat 02/01/23 17:49 Urine Microscopic Stat Discontinued Medications Hydromorphone HCl (Hydromorphone 0.5 Mg Inj) 0.5 mg IV NOW ONE Stop: 02/01/23 18:00 Last Admin: 02/01/23 18:13 Dose: 0.5 mg Documented By: ELISHA Ketorolac Tromethamine (Ketorolac 30 Mg/Ml Vial) 15 mg IV NOW ONE Stop: 02/01/23 16:43 Last Admin: 02/01/23 16:58 Dose: 15 mg Documented By: ELISHA Ondansetron HCl (Ondansetron 4 Mg/2 Ml Inj) 4 mg IV NOW ONE Stop: 02/01/23 18:00 Last Admin: 02/01/23 18:13 Dose: 4 mg Documented By: ELISHA Vital Signs Vital signs: Vital Signs - 8 hr 02/01/23 16:03 02/01/23 16:50 02/01/23 18:01 Temperature 98.4 F Pulse Rate 108 H 105 H 80 Respiratory Rate 18 Blood Pressure 162/106 H 155/84 H 131/78 Pulse Oximetry 99 99 99 Oxygen Delivery Method Room Air Room Air Room Air 02/01/23 18:50 Temperature Pulse Rate 89 Respiratory Rate 12 Blood Pressure 155/93 H Pulse Oximetry 98 Oxygen Delivery Method Room Air <Mirta Fournier MD - Last Filed: 02/01/23 20:20> Orders Ordered: ED Orders 02/01/23 16:56 CBC Auto Diff [Complete Blood Count AUTO DIFF] Stat CMP [Comprehensive Metabolic Panel] Stat 02/01/23 17:49 Urine Microscopic Stat Discontinued Medications Hydromorphone HCl (Hydromorphone 0.5 Mg Inj) 0.5 mg IV NOW ONE Stop: 02/01/23 18:00 Last Admin: 02/01/23 18:13 Dose: 0.5 mg Documented By: ELISHA Ketorolac Tromethamine (Ketorolac 30 Mg/Ml Vial) 15 mg IV NOW ONE Stop: 02/01/23 16:43 Last Admin: 02/01/23 16:58 Dose: 15 mg Documented By: ELISHA Ondansetron HCl (Ondansetron 4 Mg/2 Ml Inj) 4 mg IV NOW ONE Stop: 02/01/23 18:00 Last Admin: 02/01/23 18:13 Dose: 4 mg Documented By: ELISHA Vital Signs Vital signs: Vital Signs - 8 hr 02/01/23 16:03 02/01/23 16:50 02/01/23 18:01 Temperature 98.4 F Pulse Rate 108 H 105 H 80 Respiratory Rate 18 Blood Pressure 162/106 H 155/84 H 131/78 Pulse Oximetry 99 99 99 Oxygen Delivery Method Room Air Room Air Room Air 02/01/23 18:50 Temperature Pulse Rate 89 Respiratory Rate 12 Blood Pressure 155/93 H Pulse Oximetry 98 Oxygen Delivery Method Room Air MDM - Female Genitourinary <Lyndsay Powell PA-C - Last Filed: 02/01/23 19:33> Differential Diagnosis Differential diagnosis: Likely dysmenorrhea and other (Vaginal bleeding, spotting, endometriosis, polyps, acute on chronic pelvic pain) Lab Data Attestation: I reviewed the patient's lab results. 02/01/23 16:56 02/01/23 16:56 Labs: Lab Results 02/01/23 02/01/23 Range/Units 16:56 17:49 WBC 7.2 (4.5-11.0) X10^3/uL RBC 4.00 (4.0-5.2) X10^6/uL Hgb 11.1 L (12.0-16.0) g/dL Hct 33.6 L (36-46) % MCV 84.0 (80-100) fL MCH 27.7 (26-34) PG MCHC 33.0 (30-36) % RDW 13.8 (11.6-14.8) % Plt Count 322 (150-400) X10^3/uL Neut % (Auto) 65.5 (50-75) % Lymph % (Auto) 23.5 L (25-40) % [place] % (Auto) 8.9 (3-14) % Eos % (Auto) 1.8 L (2-4) % Baso % (Auto) 0.3 (0-2) % Neut # (Auto) 4700 (3615-6446) /uL Lymph # (Auto) 1700 (2407-9821) /uL [place] # (Auto) 600 (0-900) /uL Eos # (Auto) 100 (0-450) /uL Baso # (Auto) 0 (0-100) /uL Sodium 136 L (137-145) mmol/L Potassium 3.9 (3.4-5.1) mmol/L Chloride 102 (98-107) mmol/L Carbon Dioxide 23 (22-32) mmol/L BUN 10 (7-17) mg/dL Creatinine 0.54 (0.52-1.04) mg/dL Estimated GFR > 60 (>60) mL/min BUN/Creatinine Ratio 18.5 (6-22) Glucose 92 (70-100) mg/dL Calcium 9.6 (8.4-10.2) mg/dL Total Bilirubin 0.4 (0.2-1.3) mg/dL AST 23 (14-36) IU/L ALT 15 (<35) IU/L Alkaline Phosphatase 78 (38-126) U/L Total Protein 7.8 (6.3-8.2) g/dL Albumin 4.4 (3.5-5.0) g/dL Globulin 3.4 (1.7-4.1) g/dL Albumin/Globulin Ratio 1.3 (1.0-2.8) Urine RBC 1-5/hpf (0-5/HPF) Urine WBC 0-1/hpf (0-5/HPF) Ur Squamous Epith Cells 5-10 /hpf H (0-5/HPF) Urine Bacteria Few (2-10) H (None) Ur Culture Indicated? Cult not indicated Point of Care Testing Test Results Negative Urine Dip Bedside Urine Glucose Negative Bedside Urine Bilirubin - Negative Bedside Urine Ketone - Negative Urine Specific [place] 1.015 Bedside Urine Occult Blood +++ Bedside Urine pH 6.5 Bedside Urine Protein - Negative Bedside Urine Urobilinogen - Negative Bedside Urine Nitrite - Negative Bedside Urine Leukocytes - Negative Esterase MDM Narrative Medical decision making narrative: 42-year-old woman with a history of hypothyroid, chronic pelvic pain and heavy. Presents with concern for worse than usual pelvic pain and persistent vaginal spotting. Symptoms have been present for 3-5 months worsened recently seen by her PCP had an ultrasound done last week and they advised her of diagnosis of polyps and endometriosis she has a referral to Gynecology already. Patient's history and exam are not particularly suggestive of ovarian torsion, her pain is similar to pain she has already been experiencing for the last 3 months simply more intense than usual and longer lasting not improved with [id number] medications. On presentation patient is clearly in significant discomfort however her abdominal exam is nonspecific. Labs are obtained given her tachycardia and history of anemia and persistent bleeding for 3 months these show anemia consistent with her baseline with H&H unchanged. Patient had mild improvement in her pain with Toradol but ultimately required 0.5 of Dilaudid to make better progress on her pain. I discussed options with the patient and she does desire to start control as soon as possible if this may help control her symptoms she is prescribed Microgestin today as well as Toradol for pain she is advised to follow up closely with the women's health provider she has already received a referral to Gynecology from her PCP. Point of care urine dip did show some bacteria however this is not appear to be very clean catch and patient has not had any urinary symptoms, I have low suspicion for UTI. Did discuss this patient with the attending physician Dr. Fournier as well prior to discharge. Return precautions provided, follow-up plan discussed, all questions answered. <Mirta Fournier MD - Last Filed: 02/01/23 20:20> Lab Data Labs: Lab Results 02/01/23 02/01/23 Range/Units 16:56 17:49 WBC 7.2 (4.5-11.0) X10^3/uL RBC 4.00 (4.0-5.2) X10^6/uL Hgb 11.1 L (12.0-16.0) g/dL Hct 33.6 L (36-46) % MCV 84.0 (80-100) fL MCH 27.7 (26-34) PG MCHC 33.0 (30-36) % RDW 13.8 (11.6-14.8) % Plt Count 322 (150-400) X10^3/uL Neut % (Auto) 65.5 (50-75) % Lymph % (Auto) 23.5 L (25-40) % [place] % (Auto) 8.9 (3-14) % Eos % (Auto) 1.8 L (2-4) % Baso % (Auto) 0.3 (0-2) % Neut # (Auto) 4700 (0175-6125) /uL Lymph # (Auto) 1700 (1477-3652) /uL [place] # (Auto) 600 (0-900) /uL Eos # (Auto) 100 (0-450) /uL Baso # (Auto) 0 (0-100) /uL Sodium 136 L (137-145) mmol/L Potassium 3.9 (3.4-5.1) mmol/L Chloride 102 (98-107) mmol/L Carbon Dioxide 23 (22-32) mmol/L BUN 10 (7-17) mg/dL Creatinine 0.54 (0.52-1.04) mg/dL Estimated GFR > 60 (>60) mL/min BUN/Creatinine Ratio 18.5 (6-22) Glucose 92 (70-100) mg/dL Calcium 9.6 (8.4-10.2) mg/dL Total Bilirubin 0.4 (0.2-1.3) mg/dL AST 23 (14-36) IU/L ALT 15 (<35) IU/L Alkaline Phosphatase 78 (38-126) U/L Total Protein 7.8 (6.3-8.2) g/dL Albumin 4.4 (3.5-5.0) g/dL Globulin 3.4 (1.7-4.1) g/dL Albumin/Globulin Ratio 1.3 (1.0-2.8) Urine RBC 1-5/hpf (0-5/HPF) Urine WBC 0-1/hpf (0-5/HPF) Ur Squamous Epith Cells 5-10 /hpf H (0-5/HPF) Urine Bacteria Few (2-10) H (None) Ur Culture Indicated? Cult not indicated Point of Care Testing Test Results Negative Urine Dip Bedside Urine Glucose Negative Bedside Urine Bilirubin - Negative Bedside Urine Ketone - Negative Urine Specific [place] 1.015 Bedside Urine Occult Blood +++ Bedside Urine pH 6.5 Bedside Urine Protein - Negative Bedside Urine Urobilinogen - Negative Bedside Urine Nitrite - Negative Bedside Urine Leukocytes - Negative Esterase Discharge Plan Departure Patient Disposition: Home Clinical Impression: Pelvic pain Activity Restrictions/Additional Instructions: *You have been diagnosed with [pelvic pain, possibly due to endometriosis] *What to do: *Please continue to take your regular medications as directed. [2 ] New medication prescriptions sent to your pharmacy: [Toradol oral and control Microgestin] [ ] New medication written as a paper prescription [ ] No new medications given *Please follow up with your primary care provider in 2-3 days, call for an appointment. Let them know you were seen in the Emergency Department and that we ask that you be seen in follow up. We will electronically transmit a record of today's note if your PCP is in our system. You can certainly change the medication after you have your 1st appointment with gynecology which I recommend you do as soon as possible given your significant pain, but I did start you on control after discussion with you, Microgestin this is a progestin and estrogen pill. This should be helpful for improving her pain symptoms and overall symptoms and bleeding and helping to regulate her periods. There is a chance that this medication can interact with thyroid medication and so it would be important to follow-up closely with your primary care provider and potentially have your thyroid labs rechecked after starting this. I did also prescribe some Toradol oral medication which is the same as the 1st medicine I gave you today it is similar to ibuprofen and an is an NSAID so be cautious about taking this with a lot of other ibuprofen or NSAIDs on the same day, you can take Tylenol at the same time. I recommend you get plenty of rest take these medications as needed, follow up closely with women's health provider and if you have new or worsening symptoms seek re-evaluation sooner. *If you do not have a primary care provider please contact the [facility] Resource line at [phone]. They will ask some questions about your medical history and help get you set up with a doctor in the community. *Return to Emergency Department if you should have any new, worsening or concerning symptoms, such as [fever greater than 101 F, shaking chills, worsening pain, persistent vomiting or other bothersome symptoms] Prescriptions: New ketorolac 10 mg tablet 10 mg PO TID PRN (Reason: pain) 5 Days Qty: 14 0RF norethindrone ac-eth estradiol [Microgestin .07/12 (21)] 1.5-30 mg-mcg tablet 1 tab PO DAILY Qty: 63 0RF No Action levothyroxine 88 mcg Tablet 88 mcg PO DAILY escitalopram oxalate [Lexapro] 20 mg Tablet 20 mg PO DAILY Vyvanse 30 mg Tablet,Chewable 30 mg PO DAILY Referrals: Yolanda Reese MD [Primary Care Provider] - Stand Alone Forms: Patient Portal/API ED Sign-out <Mirta Founrier MD - Last Filed: 02/01/23 20:20> Cosign ED Attending Cosharlanature Attestation: I did not see this patient. I was available all times for consultation.
[2023-02-01 16:50] VITALS: BP 155/84; PULSE 105; O2SAT 99
[2023-02-01] MEDS: KETOROLAC 30 MG/ML VIAL 15 MG IV (16:58)
[2023-02-01 17:05] LABS: Add Manual Diff / Slide Review NO; Basophils Absolute Auto 0 /uL (0-100); Basophils Percent Auto 0.3 % (0-2); Eosinophils Absolute Auto 100 /uL (0-450); Eosinophils Percent Auto 1.8 % (2-4); Hematocrit 33.6 % (36-46); Hemoglobin 11.1 g/dL (12.0-16.0); Lymphocytes Absolute Auto 1700 /uL (1100-4500); Lymphocytes Percent Auto 23.5 % (25-40); Mean Corpuscular Hemoglobin 27.7 PG (26-34); Monocytes Absolute Auto 600 /uL (0-900); Monocytes Percent Auto 8.9 % (3-14); Neutrophils Absolute Auto 4700 /uL (1500-7000); Neutrophils Percent Auto 65.5 % (50-75); Platelet Count 322 X10^3/uL (150-400); Red Cell Distribution Width 13.8 % (11.6-14.8); White Blood Cell Count 7.2 X10^3/uL (4.5-11.0)
[2023-02-01 17:15] LABS: Alanine Aminotransferase 15 IU/L (<35); Albumin 4.4 g/dL (3.5-5.0); Albumin Globulin Ratio 1.3 (1.0-2.8); Alkaline Phosphatase 78 U/L (38-126); Aspartate Aminotransferase 23 IU/L (14-36); BUN Creatinine Ratio 18.5 (6-22); Bilirubin Total 0.4 mg/dL (0.2-1.3); Blood Urea Nitrogen 10 mg/dL (7-17); Calcium 9.6 mg/dL (8.4-10.2); Carbon Dioxide 23 mmol/L (22-32); Chloride 102 mmol/L (98-107); Estimated Glomerular Filt Rate > 60 mL/min (>60); Globulin 3.4 g/dL (1.7-4.1); Glucose 92 mg/dL (70-100); HEMOLYSIS < 15 (0-50); Potassium 3.9 mmol/L (3.4-5.1); Sodium 136 mmol/L (137-145); Total Protein 7.8 g/dL (6.3-8.2)
[2023-02-01 18:01] VITALS: BP 131/78; PULSE 80; O2SAT 99
[2023-02-01] MEDS: HYDROMORPHONE 0.5 MG INJ IV (18:13)
[2023-02-01] MEDS: ONDANSETRON 4 MG/2 ML INJ IV (18:13)
[2023-02-01 18:14] LABS: Bacteria Urine Few (2-10); Culture Indicated Urine Cult Not Indicated; RBC Urine 1-5/HPF (0-5/HPF); Squamous Epithelial Cell Urine 5-10 /HPF (0-5/HPF); WBC Urine 0-1/HPF (0-5/HPF)
[2023-02-01 18:50] VITALS: BP 155/93; PULSE 89; RESP 12; O2SAT 98
== END 2023-02-01 19:06 | disposition home or self-care (01) ==
PROVIDERS: Emergency Provider Student in an Organized Health Care Education/Training Program; PCP Student in an Organized Health Care Education/Training Program
DX: R10.2 Pelvic and perineal pain (principal)
CPT/HCPCS: 36415; 80053; 81003; 81015; 81025; 85025; 96374; 96375; 99284; J1170; J1885; J2405

== ENCOUNTER 2023-02-15 10:24 | Emergency (ER) | payer OTHER, SELFPAY ==
[2023-02-15 10:38] VITALS: BP 149/92; PULSE 78; RESP 18; TEMP 36.9; O2SAT 98; BMI 35.4
--- NOTE | 2023-02-15 10:42 | DI.RAD.S_ITS ---
PROCEDURE: XR FOOT RT MIN 3V INDICATIONS: pain/swelling TECHNIQUE: 3 views of the foot were acquired. COMPARISON: None. FINDINGS: Bones: No fractures or dislocations. No suspicious bony lesions. Soft tissues: No tibiotalar joint effusion. Achilles tendon appears normal. IMPRESSION: No acute fracture. No osseous lesion. If symptoms and/or clinical suspicion for pathology persist, further assessment with repeat, or advanced imaging (e.g., CT, MRI, or bone scan) may be helpful for further assessment. Dictated by: Gladis Devine M.D. on 02/15/2023 at 11:01 Approved by: Gladis Devine M.D. on 02/15/2023 at 11:01
--- NOTE | 2023-02-15 12:37 | ED.LOWEXIN ---
HPI - Extremity Injury (Lower) General Chief Complaint: Extremity Injury, Lower Stated Complaint: foot is swollen cant walk on it Time Seen by Provider: 02/15/23 12:37 Source: patient Mode of arrival: Ambulatory History of Present Illness HPI Narrative: Patient is a 42-year-old female who is here for evaluation of discomfort to her right foot. She states yesterday she started noticing discomfort on the ball of her right foot. There was no specific injury. No new shoes. No prolonged walking. She did have an injury on Monday where something fell on her foot but had no pain afterwards or even the next day. No fevers. No prior injuries. She stated that she got up at about 0300 hours in the morning and stepped on her right foot and had sudden discomfort. Is been persistently painful and swollen since then. It is difficult for her to walk. No tenderness with movement of the right great toe. Related Data Home Medications Medication Instructions Recorded Confirmed escitalopram oxalate 20 mg tablet 20 mg PO DAILY 01/20/21 08/17/21 (Lexapro) levothyroxine 88 mcg tablet 88 mcg PO DAILY 01/20/21 08/17/21 lisdexamfetamine 30 mg chewable 30 mg PO DAILY 01/20/21 08/17/21 tablet (Vyvanse) Previous Rx's Medication Instructions Recorded norethindrone acetate 1.5 1 tab PO DAILY endometriosis pain 02/01/23 mg-ethinyl estradiol 30 mcg tablet #63 tabs (Microgestin) hydrocodone 5 mg-acetaminophen 325 1 tab PO Q4-6H PRN pain #7 tabs 02/15/23 mg tablet Allergies Allergy/AdvReac Type Severity Reaction Status Date / Time amoxicillin [AMOXICILLIN] Allergy Unknown Verified 06/15/20 10:42 Sulfa (Sulfonamide Allergy Unknown Verified 06/15/20 10:42 Antibiotics) [SULFA (SULFONAMIDE ANTIBIOTICS)] Review of Systems Constitutional Constitutional: Reports system reviewed and no additional complaints, except as documented Musculoskeletal Musculoskeletal: Reports system reviewed and no additional complaints, except as documented Integumentary/Breasts Skin/Breast: Reports system reviewed and no additional complaints, except as documented Neurologic Neurologic: Reports system reviewed and no additional complaints, except as documented Patient History Medical History Healthy adult Surgical History No pertinent past surgical history Social History Smoking Status: Current every day smoker Smoking Status: Current every day smoker tobacco type: vaping alcohol intake frequency: 3 or more drinks per day Substance Use Type: does not use Exam Initial Vital Signs Initial Vital Signs: Vital Signs Temperature 98.5 F 02/15/23 10:38 Pulse Rate 78 02/15/23 10:38 Respiratory Rate 18 02/15/23 10:38 Blood Pressure 149/92 H 02/15/23 10:38 Pulse Oximetry 98 02/15/23 10:38 Oxygen Delivery Method Room Air 02/15/23 10:38 Const General: cooperative, comfortable and No ill appearing Cardio Pulses: dorsalis pedis present on the right Skin General: no rashes or lesions noted Neuro Sensory Exam: no sensory deficits noted Extrem Other: Discomfort at the dorsum of the right foot at the base of the great toe. It is swollen this area. No erythema. No tenderness with movement of the IP joint of the great toe. She does have some tenderness with flexion-extension of the MTP joint. No tenderness along the plantar fascia. No tenderness on the midfoot or hindfoot. Ankles unremarkable. Lower leg is unremarkable. Procedures Orthopedic Splinting/Casting Injury #1: Side: right Lower Extremity Injury Location: foot Lower Extremity Immobilizer: post-op shoe Post splinting neuro exam: no change Post splinting vascular exam: no change Placed by: Nursing Course Orders Ordered: ED Orders 02/15/23 10:42 XR foot RT min 3V Stat Discontinued Medications Hydrocodone Bitart/Acetaminophen (Hydrocodone/Acet 5/325 Tablet) 1 tab PO NOW ONE Stop: 02/15/23 13:11 Vital Signs Vital signs: Vital Signs - 8 hr 02/15/23 10:38 Temperature 98.5 F Pulse Rate 78 Respiratory Rate 18 Blood Pressure 149/92 H Pulse Oximetry 98 Oxygen Delivery Method Room Air MDM - Extremity Injury (Lower) Imaging Data Extremity x-ray #1: Radiologist's Impression: PROCEDURE: XR FOOT RT MIN 3V INDICATIONS: pain/swelling TECHNIQUE: 3 views of the foot were acquired. COMPARISON: None. FINDINGS: Bones: No fractures or dislocations. No suspicious bony lesions. Soft tissues: No tibiotalar joint effusion. Achilles tendon appears normal. IMPRESSION: No acute fracture. No osseous lesion. If symptoms and/or clinical suspicion for pathology persist, further assessment with repeat, or advanced imaging (e.g., CT, MRI, or bone scan) may be helpful for further assessment. MDM Narrative Medical decision making narrative: She does have swelling to the base of the great toe. There are no breaks in the skin. I have low suspicion for cellulitis. X-ray showed no signs of fracture. She is neurovascularly intact. I do suspect that she has strained the area. Will place her in an orthopedic shoe for her comfort. Pain medication. Discussed other conservative treatment as well. She was given return precautions. She expressed understanding and agreement. Discharge Plan Departure Patient Disposition: Home Clinical Impression: Strain of great toe, right Instructions: How To Perform RICE (Rest, Ice, Compress, Elevate) Activity Restrictions/Additional Instructions: You can walk on your right foot as tolerated. Use the orthopedic shoe as needed. Also recommend trying to stay off of your foot as much as possible and use ice. If redness gets worse or you get fevers were pain changes please return to the emergency department for further evaluation. Prescriptions: New hydrocodone-acetaminophen 5-325 mg tablet 1 tab PO Q4-6H PRN (Reason: pain) Qty: 7 0RF No Action levothyroxine 88 mcg Tablet 88 mcg PO DAILY escitalopram oxalate [Lexapro] 20 mg Tablet 20 mg PO DAILY Vyvanse 30 mg Tablet,Chewable 30 mg PO DAILY norethindrone ac-eth estradiol [Microgestin 1.5/30 (21)] 1.5-30 mg-mcg tablet 1 tab PO DAILY Qty: 63 0RF Referrals: Yolanda Reese MD [Primary Care Provider] - Stand Alone Forms: Patient Portal/API
[2023-02-15] MEDS: HYDROCODONE/ACET 5/325 TABLET 1 TAB PO (13:22)
== END 2023-02-15 13:27 | disposition home or self-care (01) ==
PROVIDERS: Emergency Provider Emergency Medicine; PCP Student in an Organized Health Care Education/Training Program
DX: S96.911A Strain of unspecified muscle and tendon at ankle and foot level, right foot, initial encounter (principal); X58.XXXA Exposure to other specified factors, initial encounter
CPT/HCPCS: 73630; 99283

== ENCOUNTER 2024-04-29 20:06 | Emergency (ER) | payer OTHER, SELFPAY ==
[2024-04-29] VITALS (10 sets, daily range): BP systolic 118–150; BP diastolic 69–86; PULSE 59–71; RESP 17–26; TEMP 36.2–37; O2SAT 97–100
--- NOTE | 2024-04-29 20:27 | EKG_ITS ---
[address] [address] Test Date: 2024-04-29 Pat Name: Monserrat Duffy Department: [facility] Room: Gender: Female [employer]: : 1980 Requested By: Order Number: [id number] Reading MD: Charli Dimas MD Measurements Intervals Sharon Rate: 65 P: 42 MN: 172 QRS: 51 QRSD: 92 T: 66 QT: 430 QTc: 447 Interpretive Statements Normal sinus rhythm Cannot rule out Anterior infarct , age undetermined Electronically Signed On 04-30-2024 6:47:08 PDT by Charli Dimas MD
[2024-04-29 20:36] LABS: Add Manual Diff / Slide Review NO; Basophils Absolute Auto 0 /uL (0-100); Basophils Percent Auto 0.3 % (0-2); Eosinophils Absolute Auto 200 /uL (0-450); Eosinophils Percent Auto 3.3 % (2-4); Hematocrit 32.7 % (36-46); Hemoglobin 10.5 g/dL (12.0-16.0); Lymphocytes Absolute Auto 1600 /uL (1100-4500); Lymphocytes Percent Auto 25.3 % (25-40); Mean Corpuscular HGB Conc 32.2 % (30-36); Mean Corpuscular Hemoglobin 26.8 PG (26-34); Mean Corpuscular Volume 83.3 fL (80-100); Monocytes Absolute Auto 600 /uL (0-900); Monocytes Percent Auto 9.3 % (3-14); Neutrophils Absolute Auto 3800 /uL (1500-7000); Neutrophils Percent Auto 61.8 % (50-75); Platelet Count 216 X10^3/uL (150-400); Prothrombin Time 11.2 SECONDS (9.4-12.5); Red Blood Cell Count 3.92 X10^6/uL (4.0-5.2); Red Cell Distribution Width 19.6 % (11.6-14.8); White Blood Cell Count 6.1 X10^3/uL (4.5-11.0)
[2024-04-29 20:39] LABS: PTT Partial Thromboplastin Tim 32 SECONDS (25.1-36.5)
--- NOTE | 2024-04-29 20:40 | PC.NURSE ---
PT lying back in gurney. Appears in NAD. Pt slurring words and talking slowly. Reports that she is feeling very weak and tired. at bedside denies that pt had any xanax or marijuana.
[2024-04-29 20:41] LABS: Lactate (Lactic Acid) < 0.5 mmol/L (0.7-2.1)
[2024-04-29 20:42] LABS: Acetaminophen < 10 ug/mL (10-30); Alanine Aminotransferase 13 IU/L (<35); Albumin 3.8 g/dL (3.5-5.0); Albumin Globulin Ratio 1.4 (1.0-2.8); Alkaline Phosphatase 66 U/L (38-126); Ammonia (NH3) < 9 umol/L (9-30); Aspartate Aminotransferase 20 IU/L (14-36); Bilirubin Total 0.6 mg/dL (0.2-1.3); Blood Urea Nitrogen 11 mg/dL (7-17); Calcium 8.8 mg/dL (8.4-10.2); Carbon Dioxide 26 mmol/L (22-32); Chloride 105 mmol/L (98-107); Creatine Kinase 49 U/L (30-135); Estimated Glomerular Filt Rate > 60 mL/min (>60); Ethanol (ETOH) < 10 mg/dL; Globulin 2.8 g/dL (1.7-4.1); Glucose 92 mg/dL (70-100); HEMOLYSIS < 15 (0-50); Potassium 3.8 mmol/L (3.4-5.1); Salicylate < 1.0 mg/dL (<20); Sodium 136 mmol/L (137-145); Total Protein 6.6 g/dL (6.3-8.2)
[2024-04-29 20:53] LABS: Troponin I < 0.012 ng/mL (0.01-0.034)
[2024-04-29 20:58] LABS: Prolactin 16.1 ng/mL (3.0-18.6)
[2024-04-29 21:17] LABS: Thyroid Stimulating Hormone 2.57 uIU/mL (0.47-4.68)
--- NOTE | 2024-04-29 21:45 | ED_ITS ---
HPI - Altered Mental Status <Edel Charlene, DO - Last Filed: 05/06/24 08:14> General Chief Complaint: Altered Mental Status Stated Complaint: AMS Time Seen by Provider: 04/29/24 20:06 Source: EMS Mode of arrival: EMS History of Present Illness HPI narrative: Patient is a 44-year-old female history of hypothyroid ADHD presenting today with altered mental status. his primary historian she was brought in by EMS. He reports that she got into an argument with 1 of their 6 children yesterday she was given friends Xanax and she took 2 last evening around 5:00- 7:00 p.m.. She was extremely tired confused has some slurring of speech has been said she also may have had some alcohol. He reports that she does not typically drink alcohol but does work as a bioinformatics developer sometimes she slept until 2:00 p.m. this afternoon which is very unlike her. She was able to wake up but has been says she seemed kind of angry and now she is just really sleepy. He typically gives her her morning meds he says she is too busy and just never take some so this has been there routine for a long time. However today he did find the Xanax of the friend in her purse. He denies any sort of depression or suicidal ideations. She was sleepy but arousable to painful stimuli Related Data Home Medications Medication Instructions Recorded Confirmed escitalopram oxalate 20 mg tablet 20 mg PO DAILY 01/20/21 08/17/21 (Lexapro) levothyroxine 88 mcg tablet 88 mcg PO DAILY 01/20/21 08/17/21 lisdexamfetamine 30 mg chewable 30 mg PO DAILY 01/20/21 08/17/21 tablet (Vyvanse) Previous Rx's Medication Instructions Recorded norethindrone acetate 1.5 1 tab PO DAILY endometriosis pain 02/01/23 mg-ethinyl estradiol 30 mcg tablet #63 tabs (Microgestin) hydrocodone 5 mg-acetaminophen 325 1 tab PO Q4-6H PRN pain #7 tabs 02/15/23 mg tablet Allergies Allergy/AdvReac Type Severity Reaction Status Date / Time amoxicillin [AMOXICILLIN] Allergy Unknown Verified 06/15/20 10:42 Sulfa (Sulfonamide Allergy Unknown Verified 06/15/20 10:42 Antibiotics) [SULFA (SULFONAMIDE ANTIBIOTICS)] Patient History <Edel Chang DO - Last Filed: 05/06/24 08:14> Medical History Healthy adult Surgical History No pertinent past surgical history Social History Smoking Status: Current every day smoker Smoking Status: Current every day smoker tobacco type: vaping alcohol intake frequency: 3 or more drinks per day Exam <Edel Chang DO - Last Filed: 05/06/24 08:14> Initial Vital Signs Initial Vital Signs: Vital Signs Temperature 97.2 F L 04/29/24 20:09 Pulse Rate 66 04/29/24 20:09 Respiratory Rate 22 04/29/24 20:09 Blood Pressure 132/81 04/29/24 20:09 Pulse Oximetry 100 04/29/24 20:09 Oxygen Delivery Method Room Air 04/29/24 20:09 GENERAL: Sleepy but arousable to pain HEENT: Head atraumatic,EOMI, pupils reactive, face symmetric, [moist] mucous membranes CARDIOVASCULAR: Regular rate and rhythm without murmurs, rubs or gallops. RESPIRATORY: Breath sounds equal bilaterally, no wheezes rales or rhonchi. ABDOMEN: Soft, nontender. Normoactive bowel sounds all 4 quadrants. No guarding or rebound. EXTREMITIES: Normal range of motion, no clubbing or edema. Neurovascularly intact NEUROLOGICAL: Moving all extremities SKIN: Warm, dry, no laceration, no petechiae, no rashes or lesions. <Tarun Silva MD - Last Filed: 05/01/24 07:44> Initial Vital Signs Initial Vital Signs: Vital Signs Temperature 97.2 F L 04/29/24 20:09 Pulse Rate 66 04/29/24 20:09 Respiratory Rate 22 04/29/24 20:09 Blood Pressure 132/81 04/29/24 20:09 Pulse Oximetry 100 04/29/24 20:09 Oxygen Delivery Method Room Air 04/29/24 20:09 Course <Edel Chang DO - Last Filed: 05/06/24 08:14> Orders Ordered: ED Orders 04/30/24 06:25 Consult to DIRECTIONAL BORE OPERATOR - X Ray Equipment Tester Stat Vital Signs Vital signs: Vital Signs - 8 hr 04/30/24 04:30 04/30/24 04:30 04/30/24 05:00 Pulse Rate 65 Respiratory Rate 22 Blood Pressure 137/84 132/83 Pulse Oximetry 97 Oxygen Delivery Method Room Air 04/30/24 05:00 04/30/24 05:30 04/30/24 05:30 Pulse Rate 63 60 Respiratory Rate 18 22 Blood Pressure 134/82 Pulse Oximetry 97 98 Oxygen Delivery Method Room Air 04/30/24 06:00 04/30/24 06:00 04/30/24 06:30 Pulse Rate 69 Respiratory Rate 21 Blood Pressure 141/78 H 131/80 Pulse Oximetry 98 Oxygen Delivery Method Room Air 04/30/24 06:30 04/30/24 07:00 04/30/24 07:00 Pulse Rate 64 59 L Respiratory Rate 18 17 Blood Pressure 131/85 Pulse Oximetry 97 97 Oxygen Delivery Method Room Air 04/30/24 07:30 04/30/24 07:30 04/30/24 08:00 Pulse Rate 63 Respiratory Rate 15 Blood Pressure 138/83 121/73 Pulse Oximetry 98 Oxygen Delivery Method 04/30/24 08:00 04/30/24 08:30 04/30/24 08:30 Pulse Rate 62 65 Respiratory Rate 16 16 Blood Pressure 126/74 Pulse Oximetry 98 97 Oxygen Delivery Method 04/30/24 09:00 04/30/24 09:00 04/30/24 09:30 Pulse Rate 64 Respiratory Rate 18 Blood Pressure 134/89 134/72 Pulse Oximetry 98 Oxygen Delivery Method 04/30/24 09:30 04/30/24 10:00 04/30/24 10:00 Pulse Rate 62 60 Respiratory Rate 22 17 Blood Pressure 118/73 Pulse Oximetry 98 98 Oxygen Delivery Method 04/30/24 10:30 04/30/24 10:30 04/30/24 11:00 Pulse Rate 65 Respiratory Rate 22 Blood Pressure 128/65 143/86 H Pulse Oximetry 96 Oxygen Delivery Method 04/30/24 11:00 04/30/24 11:30 04/30/24 11:30 Pulse Rate 74 70 Respiratory Rate 20 21 Blood Pressure 139/90 Pulse Oximetry 98 100 Oxygen Delivery Method <Tarun Silva MD - Last Filed: 05/01/24 07:44> Orders Ordered: ED Orders 04/30/24 06:25 Consult to DIRECTIONAL BORE OPERATOR - X Ray Equipment Tester Stat Vital Signs Vital signs: Vital Signs - 8 hr 04/30/24 04:30 04/30/24 04:30 04/30/24 05:00 Pulse Rate 65 Respiratory Rate 22 Blood Pressure 137/84 132/83 Pulse Oximetry 97 Oxygen Delivery Method Room Air 04/30/24 05:00 04/30/24 05:30 04/30/24 05:30 Pulse Rate 63 60 Respiratory Rate 18 22 Blood Pressure 134/82 Pulse Oximetry 97 98 Oxygen Delivery Method Room Air 04/30/24 06:00 04/30/24 06:00 04/30/24 06:30 Pulse Rate 69 Respiratory Rate 21 Blood Pressure 141/78 H 131/80 Pulse Oximetry 98 Oxygen Delivery Method Room Air 04/30/24 06:30 04/30/24 07:00 04/30/24 07:00 Pulse Rate 64 59 L Respiratory Rate 18 17 Blood Pressure 131/85 Pulse Oximetry 97 97 Oxygen Delivery Method Room Air 04/30/24 07:30 04/30/24 07:30 04/30/24 08:00 Pulse Rate 63 Respiratory Rate 15 Blood Pressure 138/83 121/73 Pulse Oximetry 98 Oxygen Delivery Method 04/30/24 08:00 04/30/24 08:30 04/30/24 08:30 Pulse Rate 62 65 Respiratory Rate 16 16 Blood Pressure 126/74 Pulse Oximetry 98 97 Oxygen Delivery Method 04/30/24 09:00 04/30/24 09:00 04/30/24 09:30 Pulse Rate 64 Respiratory Rate 18 Blood Pressure 134/89 134/72 Pulse Oximetry 98 Oxygen Delivery Method 04/30/24 09:30 04/30/24 10:00 04/30/24 10:00 Pulse Rate 62 60 Respiratory Rate 22 17 Blood Pressure 118/73 Pulse Oximetry 98 98 Oxygen Delivery Method 04/30/24 10:30 04/30/24 10:30 04/30/24 11:00 Pulse Rate 65 Respiratory Rate 22 Blood Pressure 128/65 143/86 H Pulse Oximetry 96 Oxygen Delivery Method 04/30/24 11:00 04/30/24 11:30 04/30/24 11:30 Pulse Rate 74 70 Respiratory Rate 20 21 Blood Pressure 139/90 Pulse Oximetry 98 100 Oxygen Delivery Method MDM - Altered Mental Status <Edel Botnick, DO - Last Filed: 05/06/24 08:14> Lab Data 04/29/24 20:13 04/29/24 20:13 Labs: Lab Results 04/29/24 04/29/24 04/29/24 Range/Units 20:13 22:00 22:00 WBC 6.1 (4.5-11.0) X10^3/uL RBC 3.92 L (4.0-5.2) X10^6/uL Hgb 10.5 L (12.0-16.0) g/dL Hct 32.7 L (36-46) % MCV 83.3 (80-100) fL MCH 26.8 (26-34) PG MCHC 32.2 (30-36) % RDW 19.6 H (11.6-14.8) % Plt Count 216 (150-400) X10^3/uL Neut % (Auto) 61.8 (50-75) % Lymph % (Auto) 25.3 (25-40) % [place] % (Auto) 9.3 (3-14) % Eos % (Auto) 3.3 (2-4) % Baso % (Auto) 0.3 (0-2) % Neut # (Auto) 3800 (9214-4846) /uL Lymph # (Auto) 1600 (2775-7571) /uL [place] # (Auto) 600 (0-900) /uL Eos # (Auto) 200 (0-450) /uL Baso # (Auto) 0 (0-100) /uL PT 11.2 (9.4-12.5) SECONDS INR 1.0 (0.9-1.3) APTT 32 (25.1-36.5) SECONDS Sodium 136 L (137-145) mmol/L Potassium 3.8 (3.4-5.1) mmol/L Chloride 105 (98-107) mmol/L Carbon Dioxide 26 (22-32) mmol/L BUN 11 (7-17) mg/dL Creatinine 0.61 (0.52-1.04) mg/dL Estimated GFR > 60 (>60) mL/min BUN/Creatinine Ratio 18.0 (6-22) Glucose 92 (70-100) mg/dL Serum Osmolality 281 (275-295) mOsmol/kg Lactate < 0.5 L (0.7-2.1) mmol/L Calcium 8.8 (8.4-10.2) mg/dL Total Bilirubin 0.6 (0.2-1.3) mg/dL AST 20 (14-36) IU/L ALT 13 (<35) IU/L Alkaline Phosphatase 66 (38-126) U/L Ammonia < 9 L (9-30) umol/L Total Creatine Kinase 49 (30-135) U/L Troponin I < 0.012 (0.01-0.034) ng/mL Total Protein 6.6 (6.3-8.2) g/dL Albumin 3.8 (3.5-5.0) g/dL Globulin 2.8 (1.7-4.1) g/dL Albumin/Globulin Ratio 1.4 (1.0-2.8) TSH 2.57 (0.47-4.68) uIU/mL Prolactin 16.1 (3.0-18.6) ng/mL Urine Color Yellow Urine Appearance Clear Urine pH 6.0 Normal (4.5-8.0) Ur Specific [place] 1.015 (1.000-1.035) Urine Protein Negative (Negative) Urine Glucose (UA) Negative (Negative) g/dL Urine Ketones Negative (NEGATIVE) Urine Occult Blood Negative (Negative) Urine Nitrate Negative (Negative) Urine Bilirubin Negative (NEGATIVE) Urine Urobilinogen 0.2 (0.2) E.U./dL Ur Leukocyte Esterase Negative (NEGATIVE) Urine RBC 0-1/hpf (0-5/HPF) Urine WBC 0-1/hpf (0-5/HPF) Ur Squamous Epith Cells 5-10 /hpf H (0-5/HPF) Urine Bacteria Moderate (10-30) H (None) Vol Urine Centrifuged 10ml (spun) Urine Test Negative (Negative) Salicylates < 1.0 (<20) mg/dL U Opiates 300ng/mL cut Negative (Negative) Ur Oxycodone Screen Negative (Negative) Urine Methadone Screen Negative (Negative) Acetaminophen < 10 (10-30) ug/mL Ur Barbiturates Screen Negative (Negative) U Tricyclic Antidepress Negative (Negative) Ur Phencyclidine Scrn Negative (Negative) Ur Amphetamines Screen Positive H (Negative) U Methamphetamines Scrn Negative (Negative) Ur MDMA Scrn (Ecstasy) Negative (Negative) U Benzodiazepines Scrn Positive H (Negative) Urine Cocaine Screen Negative (Negative) U Marijuana (THC) Screen Positive H (Negative) Urine Specific [place] Normal (Normal) Ethyl Alcohol < 10 ( - 10) mg/dL Ur Creatinine Normal (Normal) Point of Care Testing Glucose POC [address] scan - head: Radiologist's Impression: PROCEDURE: CT HEAD/BRAIN WO CON INDICATIONS: altered mental status TECHNIQUE: Noncontrast 4.5 mm thick angled axial sections acquired from the foramen magnum to the vertex, with coronal and sagittal reformats. For radiation dose reduction, the following was used: automated exposure control, adjustment of mA and/or kV according to patient size. COMPARISON: None. FINDINGS: Image quality: Diagnostic. CSF spaces: Basal cisterns are patent. No extra-axial fluid collections. Ventricles are normal in size and shape. Brain: No midline shift. No intracranial masses or hemorrhage. Ray-white matter interface is normal. Skull and face: Calvarium and visualized facial bones are intact, without suspicious lesions. Sinuses: Visualized sinuses and mastoids are clear. IMPRESSION: No acute intracranial pathology. Approved by: Ashley Brooks M.D.,Ph.D. on 04/29/2024 at 22:57 ECG Data Attestation: I personally reviewed and interpreted this ECG as follows: Prior ECG tracings: available for review Interpretation: Normal sinus rhythm rate 65 IL interval 172 QRS 92 QTC 447 no arrhythmia no ischemia MDM Narrative Medical decision making narrative: MDM CC: Altered mental status Complicating co-morbidities: Hypothyroid ADHD Data collected from: EMS and Medical records reviewed: Previous ED visit in 2023 Differential considered: Overdose suicidal ideation intracranial hemorrhage electrolyte abnormality sepsis hypoglycemia Exam documented above, pertinent findings include: Patient sleeping but arousable to painful stimuli sometimes verbal stimuli. She is moving all extremities no facial droop. Lung sounds are clear no peripheral edema Lab Test results independently reviewed as above. Pertinent findings: Urine toxicology positive for benzos and marijuana Alcohol less than 10 Tylenol undetectable salicylate undetected No leukocytosis, anemia is stable hemoglobin 10.5 hematocrit 32.7 previously 11.1/33.6 platelets 216 Lactate undetectable Bilirubin liver enzymes within normal limits Independently reviewed EKG as above Sinus rhythm no prolonged QRS or QTC Imaging studies independently reviewed: Head CT no acute intracranial process Consultations: Treatments: none Re-evaluations: Patient continues to be monitored CO2 detector is sent up. She does respond to painful stimuli. Has been remains at bedside Discussion: Patient 44-year-old female history of anxiety depression presenting to day with altered mental status. It sounds as though she has had access to Xanax for at least 24 hours. Has been is unsure how many tablets of Xanax she had access to and how many she has left. Patient remains sleepy but her rousable in the ED. This time I suspect patient took many more Xanax than the has been nose out unclear what she combined with. She has no evidence of prolonged QTC or QRS. At this time monitor clinically. Nursing notes report that she woke up stating that she overdose and does not have suicidal ideations. Awaiting for social work evaluation at this time along with medical clearance. 0615 attempted to patient little more arousable still quite sleepy. Protecting airway this whole time no need for intubation. At this time on clear patient's intent would hold for social work evaluation. It is also unclear what she took. Signed out to Dr. Silva, awaiting for patient to wake up for evaluation and disposition <Tarun Silva MD - Last Filed: 05/01/24 07:44> Lab Data Labs: Lab Results 04/29/24 04/29/24 04/29/24 Range/Units 20:13 22:00 22:00 WBC 6.1 (4.5-11.0) X10^3/uL RBC 3.92 L (4.0-5.2) X10^6/uL Hgb 10.5 L (12.0-16.0) g/dL Hct 32.7 L (36-46) % MCV 83.3 (80-100) fL MCH 26.8 (26-34) PG MCHC 32.2 (30-36) % RDW 19.6 H (11.6-14.8) % Plt Count 216 (150-400) X10^3/uL Neut % (Auto) 61.8 (50-75) % Lymph % (Auto) 25.3 (25-40) % [place] % (Auto) 9.3 (3-14) % Eos % (Auto) 3.3 (2-4) % Baso % (Auto) 0.3 (0-2) % Neut # (Auto) 3800 (9683-2773) /uL Lymph # (Auto) 1600 (5790-1609) /uL [place] # (Auto) 600 (0-900) /uL Eos # (Auto) 200 (0-450) /uL Baso # (Auto) 0 (0-100) /uL PT 11.2 (9.4-12.5) SECONDS INR 1.0 (0.9-1.3) APTT 32 (25.1-36.5) SECONDS Sodium 136 L (137-145) mmol/L Potassium 3.8 (3.4-5.1) mmol/L Chloride 105 (98-107) mmol/L Carbon Dioxide 26 (22-32) mmol/L BUN 11 (7-17) mg/dL Creatinine 0.61 (0.52-1.04) mg/dL Estimated GFR > 60 (>60) mL/min BUN/Creatinine Ratio 18.0 (6-22) Glucose 92 (70-100) mg/dL Serum Osmolality 281 (275-295) mOsmol/kg Lactate < 0.5 L (0.7-2.1) mmol/L Calcium 8.8 (8.4-10.2) mg/dL Total Bilirubin 0.6 (0.2-1.3) mg/dL AST 20 (14-36) IU/L ALT 13 (<35) IU/L Alkaline Phosphatase 66 (38-126) U/L Ammonia < 9 L (9-30) umol/L Total Creatine Kinase 49 (30-135) U/L Troponin I < 0.012 (0.01-0.034) ng/mL Total Protein 6.6 (6.3-8.2) g/dL Albumin 3.8 (3.5-5.0) g/dL Globulin 2.8 (1.7-4.1) g/dL Albumin/Globulin Ratio 1.4 (1.0-2.8) TSH 2.57 (0.47-4.68) uIU/mL Prolactin 16.1 (3.0-18.6) ng/mL Urine Color Yellow Urine Appearance Clear Urine pH 6.0 Normal (4.5-8.0) Ur Specific [place] 1.015 (1.000-1.035) Urine Protein Negative (Negative) Urine Glucose (UA) Negative (Negative) g/dL Urine Ketones Negative (NEGATIVE) Urine Occult Blood Negative (Negative) Urine Nitrate Negative (Negative) Urine Bilirubin Negative (NEGATIVE) Urine Urobilinogen 0.2 (0.2) E.U./dL Ur Leukocyte Esterase Negative (NEGATIVE) Urine RBC 0-1/hpf (0-5/HPF) Urine WBC 0-1/hpf (0-5/HPF) Ur Squamous Epith Cells 5-10 /hpf H (0-5/HPF) Urine Bacteria Moderate (10-30) H (None) Vol Urine Centrifuged 10ml (spun) Urine Test Negative (Negative) Salicylates < 1.0 (<20) mg/dL U Opiates 300ng/mL cut Negative (Negative) Ur Oxycodone Screen Negative (Negative) Urine Methadone Screen Negative (Negative) Acetaminophen < 10 (10-30) ug/mL Ur Barbiturates Screen Negative (Negative) U Tricyclic Antidepress Negative (Negative) Ur Phencyclidine Scrn Negative (Negative) Ur Amphetamines Screen Positive H (Negative) U Methamphetamines Scrn Negative (Negative) Ur MDMA Scrn (Ecstasy) Negative (Negative) U Benzodiazepines Scrn Positive H (Negative) Urine Cocaine Screen Negative (Negative) U Marijuana (THC) Screen Positive H (Negative) Urine Specific [place] Normal (Normal) Ethyl Alcohol < 10 ( - 10) mg/dL Ur Creatinine Normal (Normal) Point of Care Testing Glucose POC 89 MDM Narrative Medical decision making narrative: MDM CC: Altered mental status Complicating co-morbidities: Hypothyroid ADHD Data collected from: EMS and Medical records reviewed: Previous ED visit in 2023 Differential considered: Overdose suicidal ideation intracranial hemorrhage electrolyte abnormality sepsis hypoglycemia Exam documented above, pertinent findings include: Patient sleeping but arousable to painful stimuli sometimes verbal stimuli. She is moving all extremities no facial droop. Lung sounds are clear no peripheral edema Lab Test results independently reviewed as above. Pertinent findings: Urine toxicology positive for benzos and marijuana Alcohol less than 10 Tylenol undetectable salicylate undetected No leukocytosis, anemia is stable hemoglobin 10.5 hematocrit 32.7 previously 11.1/33.6 platelets 216 Lactate undetectable Bilirubin liver enzymes within normal limits Independently reviewed EKG as above Sinus rhythm no prolonged QRS or QTC Imaging studies independently reviewed: Head CT no acute intracranial process Consultations: Treatments: none Re-evaluations: Patient continues to be monitored CO2 detector is sent up. She does respond to painful stimuli. Has been remains at bedside Discussion: Patient 44-year-old female history of anxiety depression presenting to day with altered mental status. It sounds as though she has had access to Xanax for at least 24 hours. Has been is unsure how many tablets of Xanax she had access to and how many she has left. Patient remains sleepy but her rousable in the ED. This time I suspect patient took many more Xanax than the has been nose out unclear what she combined with. She has no evidence of prolonged QTC or QRS. At this time monitor clinically. Nursing notes report that she woke up stating that she overdose and does not have suicidal ideations. Awaiting for social work evaluation at this time along with medical clearance. 0615 attempted to patient little more arousable still quite sleepy. Protecting airway this whole time no need for intubation. At this time on clear patient's intent would hold for social work evaluation. It is also unclear what she took. Signed out to Dr. Silva, awaiting for patient to wake up for evaluation and disposition April 30, 2024 at 7:00 a.m.. Ricardo: sign out from Dr Chang , patient has been somnolent through the night. Patient was not given any medications here. We will need social work evaluation with patient and . Has been has been at bedside. 7:30 a.m.. I spoke with patient and . Patient is very somnolent at this time. We are awaiting for social work for evaluation. agrees. 12:07 p.m.. Patient is awake alert oriented x4. at bedside. Patient just met with social human services assistants, Michelle, I have spoken wound with Michelle as well. No SI or HI per patient. Patient states she has been under lot of stress. 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 She has 4 children at home. She took for of her Xanax pills this past Monday within 12 hours because of stress. She did not do this to hurt herself. No SI or HI. She has not taken this medication in 6 months she states. She has her speech at this time. No SI HI. Reviewed results with patient has been. Discharge home. Work note provided. Patient not requiring supplemental oxygen Discharge Plan Departure Patient Disposition: Home Clinical Impression: Accidental overdose Qualifiers: Encounter type: initial encounter Qualified Code(s): T50.901A - Poisoning by unspecified drugs, medicaments and biological substances, accidental (unintentional), initial encounter Fatigue Qualifiers: Fatigue type: unspecified Qualified Code(s): R53.83 - Other fatigue Instructions: DI for Fatigue, DI for Drug Overdose in Adults Activity Restrictions/Additional Instructions: Please take your medication as prescribed. Do not take more than prescribed. No driving operating machinery today. Please see your family doctor in a week for re-evaluation. Work note has been provided for you. Please get plenty of rest. Prescriptions: No Action levothyroxine 88 mcg Tablet 88 mcg PO DAILY escitalopram oxalate [Lexapro] 20 mg Tablet 20 mg PO DAILY Vyvanse 30 mg Tablet,Chewable 30 mg PO DAILY hydrocodone-acetaminophen 5-325 mg tablet 1 tab PO Q4-6H PRN (Reason: pain) Qty: 7 0RF norethindrone ac-eth estradiol [Microgestin 1.5/30 (21)] 1.5-30 mg-mcg tablet 1 tab PO DAILY Qty: 63 0RF Referrals: Yolanda Reese MD [Primary Care Provider] - Stand Alone Forms: Patient Portal/API/Survey, Work Release Note
--- NOTE | 2024-04-29 21:55 | DI.CT.S_ITS ---
PROCEDURE: CT HEAD/BRAIN WO CON INDICATIONS: altered mental status TECHNIQUE: Noncontrast 4.5 mm thick angled axial sections acquired from the foramen magnum to the vertex, with coronal and sagittal reformats. For radiation dose reduction, the following was used: automated exposure control, adjustment of mA and/or kV according to patient size. COMPARISON: None. FINDINGS: Image quality: Diagnostic. CSF spaces: Basal cisterns are patent. No extra-axial fluid collections. Ventricles are normal in size and shape. Brain: No midline shift. No intracranial masses or hemorrhage. Ray-white matter interface is normal. Skull and face: Calvarium and visualized facial bones are intact, without suspicious lesions. Sinuses: Visualized sinuses and mastoids are clear. IMPRESSION: No acute intracranial pathology. Approved by: Ashley Brooks M.D.,Ph.D. on 04/29/2024 at 22:57
[2024-04-29 22:09] LABS: Appearance Urine UA CLEAR; Bilirubin Urine UA NEGATIVE (NEGATIVE); Color Urine UA YELLOW; Glucose Urine UA NEGATIVE (Negative); Ketones Urine UA NEGATIVE (NEGATIVE); Leukocyte Esterase Urine UA NEGATIVE (NEGATIVE); Nitrite Urine UA NEGATIVE (Negative); Occult Blood Urine UA NEGATIVE (Negative); Protein Urine UA NEGATIVE (Negative); Specific Gravity Urine UA 1.015 (1.000-1.035); Urobilinogen Urine UA 0.2 E.U./dL (0.2)
[2024-04-29 22:14] LABS: Ur Creatinine Normal (Normal); Ur Specific Gravity Normal (Normal)
[2024-04-29 22:15] LABS: Urine pH Normal (Normal)
[2024-04-29 22:16] LABS: UR Morphine/Opiate cutoff 300 Negative (Negative); Urine Amphetamines Positive (Negative); Urine Cocaine Negative (Negative); Urine Tetrahydrocannabinol Positive (Negative)
[2024-04-29 22:17] LABS: Urine Barbiturates Negative (Negative); Urine Benzodiazepines Positive (Negative); Urine MDMA Negative (Negative); Urine Methadone Negative (Negative); Urine Methamphetamines Negative (Negative); Urine Oxycodone Negative (Negative); Urine Phencyclidine Negative (Negative); Urine Tricyclic Antidepressant Negative (Negative)
[2024-04-29 22:20] LABS: Bacteria Urine Moderate (10-30); RBC Urine 0-1/HPF (0-5/HPF); Squamous Epithelial Cell Urine 5-10 /HPF (0-5/HPF); Urine Volume 10mL (spun); WBC Urine 0-1/HPF (0-5/HPF)
--- NOTE | 2024-04-29 22:20 | PC.NURSE ---
In the DI room after pt received CT scan, she sat up and said before we got back out there, just between you ladies (Shweta DI team, Marcella DI team and Alee RN) I am going through alot and have a diabetic daughter, I have been under alot of stress and took 2 anti anxiety medications and then waited 15min and then took 2 more. Pt was slurring and very sleepy and her thought was very disorganized and remains unclear of wether or not this was an SI attempt.
[2024-04-29 22:28] LABS: Pregnancy Test Urine Negative (Negative)
--- NOTE | 2024-04-29 22:51 | PC.NURSE ---
Dr. Chang notified of previous note.
--- NOTE | 2024-04-29 23:26 | PC.NURSE ---
Pt placed on end tidal CO2 monitor.
[2024-04-30] VITALS (27 sets, daily range): BP systolic 118–146; BP diastolic 64–90; PULSE 59–74; RESP 15–39; O2SAT 95–100
--- NOTE | 2024-04-30 02:18 | PC.NURSE ---
Pt woke up as this nurse was doing rounds. Pt asks what day is this? Confused as to what happened. Then states I just want everyone to know I was not trying to kill myself, I must have gotten my pills mixed up. Her SO is a bedside and is providing emotional support to pt.
--- NOTE | 2024-04-30 11:37 | PC.NURSE ---
Pt sitting up in bed, eating a hamburger, AOx4, partner at bedside. LINUX PROGRAMMER in room for consultation.
--- NOTE | 2024-04-30 12:05 | CM.SWNOTE ---
ED GAS MAIN FITTER HELPER Assessment Note Patient is 44 y/o female who presents to ED via EMS due to concern for altered mental status. It is reported that patient accidentally took too much xanax, it is reported that patient usually takes a quarter of a pill but she lost track of time and took more than normal. It is reported that patient does not have rx of Xanax. Patient's PCP is through the [facility], patient has [employer] insurance. Per EMR, RN reviews patient's prescriptions. Patient is prescribed Buspirone HCl 10 mg, Esitalopram 20 mg and Vyvanse 30 mg and 10 mg. Patient's toxicology screen is positive for Amphetamines, Benzodiazapines, and Marijuana. GAS MAIN FITTER HELPER initially enters room at 10:38, patient is sleeping and somnolent and unable to be aroused by GAS MAIN FITTER HELPER or . GAS MAIN FITTER HELPER is informed by RN that patient woke up and is A/O. GAS MAIN FITTER HELPER enters room at 11:30 and patient is awake, A/O to person, place and self. Patient did not know what day it was but knows it is April. Patient states i lost two days. Present in room is spouse, patient gives consent for him to be present. 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 Patient states she has five kids at home and one of her children is an adult with type 1 diabetes who has difficulty managing it and takes the stress out on patient. Patient endorses that she has taken xanax or lorazapam for the last 20 years to manage stress and anxiety. Patient states that she normally takes a quarter of a tablet but she lost track of time and stress was building and shes states she took more than normal. Patient denies SI or intent to harm self. Patient states she takes the medication to address her stress and anxiety and she wants to be able to perform her job well, patient states that a lot of people rely on her and her employer will not hire any assistants. Patient endorses she uses marijuana at night for sleep and stress management. Patient states she is prescribed medication for her ADHD and Anxiety. GAS MAIN FITTER HELPER discusses self care with patient, patient states that she practices breathing techniques, goes on drives, listens to music, gets her nails done and sees friends. GAS MAIN FITTER HELPER discusses medical leave and taking a break from her job, patient presents with concern that there would be no replacement for her job. GAS MAIN FITTER HELPER offers resources for MH counselors, patient declines. Patient denies need for other resources. GAS MAIN FITTER HELPER encourages patient to follow up with PCP regarding medications and stress and to inquire about medical leave. It is the opinion of this GAS MAIN FITTER HELPER that patient is safe to d/c to home with spouse upon medical clearance. Plan: ED provider provides patient with work note, patient to d/c to home upon medical clearance, patient to f/u with PCP. Michelle Causey, ROLLER VARNISHER
[2024-05-01 10:41] LABS: Osmolality, Serum 281 mOsmol/kg (275-295)
== END 2024-04-30 12:27 | disposition home or self-care (01) ==
PROVIDERS: Emergency Medicine; Emergency Provider Emergency Medicine; PCP Student in an Organized Health Care Education/Training Program
DX: T50.901A Poisoning by unspecified drugs, medicaments and biological substances, accidental (unintentional), initial encounter (principal); R53.83 Other fatigue
CPT/HCPCS: 36415; 70450; 80053; 80305; 80320; 80329; 81001; 81025; 82140; 82550; 82962; 83605; 83930; 84146; 84443; 84484; 85025; 85610; 85730; 87040; 87086; 93005; 93010; 99284; G0480